=== PATIENT | male | born 1955 | race African-American/Black ===

== ENCOUNTER 2017-11-04 19:06 | Emergency (ER) | payer MEDICARE, OTHER ==
[2017-11-04] MEDS ORDERED: Acetaminophen/Codeine 30-300mg Tablet ONE (19:36)
== END 2017-11-04 20:15 | disposition home or self-care (01) ==
LOC: ERS 19:06
DX: K08.89 Other specified disorders of teeth and supporting structures (principal); F17.210 Nicotine dependence, cigarettes, uncomplicated; Z79.82 Long term (current) use of aspirin; Z79.899 Other long term (current) drug therapy; Z79.01 Long term (current) use of anticoagulants
CPT/HCPCS: 99282

== ENCOUNTER 2021-12-12 16:01 | Inpatient (IN) | payer OTHER ==
[2021-12-12 16:22] LABS: #Lymphocytes 1.2 thou/uL (1.20-3.40); #Monocytes 0.6 thou/uL (0.11-0.59); #Neutrophils 2.6 thou/uL (1.40-6.50); %Basophils 1.1 % (0.0-1.0); %Eosinophils 0.5 % (0.0-10.0); %Lymphocytes 26.9 % (21.0-51.0); %Monocytes 13.2 % (0.0-10.0); %Neutrophils 58.3 % (42.0-75.0); Hemoglobin 14.4 g/dL (14.0-18.0); Mean Corpuscular HGB CONC 33.7 g/dL (32.0-36.0); Mean Platelet Volume 9.7 fL (7.4-10.4); Platelet Count 131 thou/uL (130-400); RBC Distribution Width 13.6 % (11.5-14.5); White Blood Cell (WBC) Count 4.4 thou/uL (4.8-10.8)
[2021-12-12 16:33] LABS: Prothrombin Time 32.7 sec (12.0-14.7)
[2021-12-12 16:35] LABS: PTT 54.2 sec (22.9-36.1)
[2021-12-12 16:37] LABS: INR-International Normal Ratio 3.1
[2021-12-12 16:48] LABS: ALT (SGPT) 13 U/L (8-55); AST (SGOT) 21 U/L (5-34); Albumin 3.8 g/dL (3.4-4.8); Alkaline Phosphatase 61 U/L (40-110); Anion Gap 16 mmol/L (10-20); BUN (Urea Nitrogen) 24 mg/dL (8.4-25.7); Bilirubin, Total 1.3 mg/dL (0.2-1.2); CK (CPK) 131 U/L (30-200); Calc. Creatinine Clearance 0 mL/min (70-130); Calcium 8.8 mg/dL (7.8-10.44); Carbon Dioxide 21 mmol/L (23-31); Chloride 105 mmol/L (98-107); Estimated GFR 76; Glucose 99 mg/dL (80-115); Potassium 4.2 mmol/L (3.5-5.1); Protein, Total 6.8 g/dL (5.8-8.1); Sodium 138 mmol/L (136-145)
[2021-12-12] MEDS ORDERED: Dexamethasone 4 MG in Sodium Chloride 0.9% 50 ML IVPB SCH (18:00)
[2021-12-12] MEDS ORDERED: Dexamethasone 10 MG in Sodium Chloride 0.9% 50 ML IVPB SCH (18:00)
[2021-12-12] MEDS ORDERED: levETIRAcetam in NS 1,000 MG in Premix Bag 1 BAG IVPB SCH (18:00)
[2021-12-12] MEDS ORDERED: Ondansetron PF 4 MG/2 ML Vial IVP PRN (18:09)
[2021-12-12] MEDS ORDERED: Acetaminophen 325 MG TAB PO PRN (18:09)
[2021-12-12] MEDS ORDERED: niCARdipine 25 MG in Sodium Chloride 0.9% 250 ML 250 ML IVPB PRN (18:09)
[2021-12-12] MEDS ORDERED: Labetalol HCl 100 MG/20 ML VIAL SLOW IVP PRN (18:09)
[2021-12-12] MEDS ORDERED: Phytonadione 10 MG/ML AMP SLOW IVP SCH (18:30)
[2021-12-12] MEDS ORDERED: HUM PROTHROMBIN CPLX(PCC)4FACT 1,000 UNIT, Human Prothrombin Complx(PCC) 500 UNIT in Ad... IV SCH (18:30)
[2021-12-12] MEDS ORDERED: Dexamethasone 10 MG/ML VIAL SLOW IVP SCH (19:00)
[2021-12-12] MEDS ORDERED: levETIRAcetam 500 MG/5 ML VIAL SLOW IVP SCH (19:00)
[2021-12-12 19:26] LABS: Acetaminophen Less than 10.0 mcg/mL (10.0-30.0); Alcohol Less than 10 mg/dL (Less than 10); Salicylate Less than 8.0 mg/dL (15.0-30.0)
[2021-12-12 19:31] LABS: SARS-CoV-2 NAA Rapid Test Not Detected (NotDetected)
[2021-12-12 20:48] LABS: INR-International Normal Ratio 1.3; PTT 40.5 sec (22.9-36.1); Prothrombin Time 16.3 sec (12.0-14.7)
[2021-12-12] MEDS: Pantoprazole 40 MG VIAL IVP SCH (22:36)
[2021-12-12] MEDS ORDERED: Dexamethasone 4 mg/ml Vial SLOW IVP SCH (23:59)
[2021-12-13 03:49] LABS: INR-International Normal Ratio 1.2; Prothrombin Time 14.9 sec (12.0-14.7)
[2021-12-13 03:50] LABS: PTT 39.2 sec (22.9-36.1)
[2021-12-13 03:58] LABS: Anion Gap 15 mmol/L (10-20); BUN (Urea Nitrogen) 20 mg/dL (8.4-25.7); Calc. Creatinine Clearance 75 mL/min (70-130); Carbon Dioxide 22 mmol/L (23-31); Cardiac Risk 2.8 (Less than 4.5); Chloride 106 mmol/L (98-107); Cholesterol 186 mg/dl (< 200 Desired); Estimated GFR 95; Glucose 106 mg/dL (80-115); HDL Cholesterol 67 mg/dL (>60 Neg Risk); LDL Cholesterol, Calculated 89 mg/dL; Potassium 4.1 mmol/L (3.5-5.1); Sodium 139 mmol/L (136-145); Triglycerides 148 mg/dL (Less than 150)
[2021-12-13 04:13] LABS: #Lymphocytes 0.6 thou/uL (1.20-3.40); #Monocytes 0.2 thou/uL (0.11-0.59); #Neutrophils 3.7 thou/uL (1.40-6.50); %Basophils 0.2 % (0.0-1.0); %Eosinophils 0.2 % (0.0-10.0); %Monocytes 4.4 % (0.0-10.0); %Neutrophils 82.2 % (42.0-75.0); Hemoglobin 14.4 g/dL (14.0-18.0); Large Platelets SLIGHT; MDiff Complete? YES; Macrocytosis MODERATE=16-30 cells (100X) (0-5/hpf); Mean Corpuscular HGB CONC 34.6 g/dL (32.0-36.0); Mean Platelet Volume 10.1 fL (7.4-10.4); Ovalocytes SLIGHT = 2-5 cells (100X) (0-1/hpf); Platelet Count 118 thou/uL (130-400); Platelet Morphology Comment Appears Decreased; RBC Distribution Width 13.3 % (11.5-14.5); Red Blood Cell (RBC) Count 3.99 mill/uL (4.70-6.10); White Blood Cell (WBC) Count 4.5 thou/uL (4.8-10.8)
[2021-12-13] MEDS: Dexamethasone 4 mg/ml Vial SLOW IVP SCH ×3 (05:22→19:23)
[2021-12-13] MEDS: levETIRAcetam 500 MG/5 ML VIAL SLOW IVP SCH ×2 (10:57→21:19)
[2021-12-13] MEDS: Pantoprazole 40 MG VIAL IVP SCH ×2 (10:57→21:20)
[2021-12-13 11:39] LABS: Amphetamine Not Detected (NotDetected); Barbiturates Screen Not Detected (NotDetected); Benzodiazepine Screen Not Detected (NotDetected); Cocaine Metabolite Screen Not Detected (NotDetected); Methadone Not Detected (NotDetected); Methamphetamine Not Detected (NotDetected); Opiate Screen Not Detected (NotDetected); Oxycodone Screen Not Detected (NotDetected); Phencyclidine (PCP) Not Detected (NotDetected); THC/Cannabinoid Screen Detected (NotDetected); Tricyclic Screen Not Detected (NotDetected)
[2021-12-13] MEDS ORDERED: Midazolam HCl 2 mg/2 ml Vial IVP SCH (14:45)
[2021-12-14] MEDS: Dexamethasone 4 mg/ml Vial SLOW IVP SCH ×4 (00:12→18:53)
[2021-12-14] MEDS: levETIRAcetam 500 MG/5 ML VIAL SLOW IVP SCH ×2 (09:41→21:45)
[2021-12-14] MEDS: Pantoprazole 40 MG VIAL IVP SCH ×2 (09:41→21:45)
[2021-12-14 13:31] VITALS: BMI 17.9
[2021-12-14] MEDS ORDERED: Haloperidol Lactate 5 MG/ML VIAL ONE (17:10)
[2021-12-14] MEDS ORDERED: Haloperidol Lactate 5 MG/ML VIAL IM SCH (18:00)
[2021-12-15] MEDS: Dexamethasone 4 mg/ml Vial SLOW IVP SCH ×4 (01:57→18:32)
[2021-12-15] MEDS: levETIRAcetam 500 MG/5 ML VIAL SLOW IVP SCH ×2 (09:21→21:02)
[2021-12-15] MEDS: Pantoprazole 40 MG VIAL IVP SCH ×2 (09:24→21:03)
[2021-12-16] MEDS: Dexamethasone 4 mg/ml Vial SLOW IVP SCH ×4 (00:13→18:29)
[2021-12-16] MEDS: levETIRAcetam 500 MG/5 ML VIAL SLOW IVP SCH ×2 (08:50→21:25)
[2021-12-16] MEDS: Pantoprazole 40 MG VIAL IVP SCH (08:50)
[2021-12-17] MEDS: Dexamethasone 4 mg/ml Vial SLOW IVP SCH ×4 (00:14→18:16)
[2021-12-17 06:15] LABS: Anion Gap 13 mmol/L (10-20); BUN (Urea Nitrogen) 23 mg/dL (8.4-25.7); Calc. Creatinine Clearance 85 mL/min (70-130); Calcium 8.7 mg/dL (7.8-10.44); Carbon Dioxide 23 mmol/L (23-31); Chloride 103 mmol/L (98-107); Estimated GFR 99; Glucose 112 mg/dL (80-115); Potassium 4.1 mmol/L (3.5-5.1); Sodium 135 mmol/L (136-145)
[2021-12-17] MEDS: levETIRAcetam 500 MG/5 ML VIAL SLOW IVP SCH ×2 (08:17→20:42)
[2021-12-17] MEDS: Atorvastatin Calcium 40 MG TAB PO SCH (20:42)
[2021-12-18] MEDS: Dexamethasone 4 mg/ml Vial SLOW IVP SCH ×3 (00:36→13:45)
[2021-12-18] MEDS: levETIRAcetam 500 MG/5 ML VIAL SLOW IVP SCH (10:35)
[2021-12-18] MEDS ORDERED: levETIRAcetam 500 MG TAB PO SCH (11:15)
[2021-12-18] MEDS ORDERED: Dexamethasone 4 MG TAB PO SCH (14:00)
[2021-12-18] MEDS: Dexamethasone 4 MG TAB PO SCH ×2 (19:27→23:53)
[2021-12-18] MEDS: levETIRAcetam 500 MG TAB PO SCH (20:58)
[2021-12-18] MEDS: Atorvastatin Calcium 40 MG TAB PO SCH (20:58)
[2021-12-19] MEDS: Dexamethasone 4 MG TAB PO SCH ×3 (06:14→18:12)
[2021-12-19] MEDS: levETIRAcetam 500 MG TAB PO SCH ×2 (09:06→22:12)
[2021-12-19 12:18] LABS: Anion Gap 17 mmol/L (10-20); BUN (Urea Nitrogen) 23 mg/dL (8.4-25.7); Calc. Creatinine Clearance 77 mL/min (70-130); Carbon Dioxide 21 mmol/L (23-31); Chloride 100 mmol/L (98-107); Estimated GFR 96; Glucose 166 mg/dL (80-115); Magnesium 1.9 mg/dL (1.6-2.6); Potassium 4.1 mmol/L (3.5-5.1); Sodium 134 mmol/L (136-145)
[2021-12-19] MEDS: Atorvastatin Calcium 40 MG TAB PO SCH (22:12)
[2021-12-19] MEDS: Metoprolol Tartrate 25 MG TAB PO SCH (22:12)
[2021-12-20] MEDS: Dexamethasone 4 MG TAB PO SCH ×4 (03:19→17:56)
[2021-12-20] MEDS: levETIRAcetam 500 MG TAB PO SCH ×2 (09:17→20:19)
[2021-12-20 09:42] LABS: #Lymphocytes 0.9 thou/uL (1.20-3.40); #Monocytes 0.8 thou/uL (0.11-0.59); #Neutrophils 7.9 thou/uL (1.40-6.50); %Eosinophils 0.2 % (0.0-10.0); %Lymphocytes 9.5 % (21.0-51.0); %Monocytes 8.3 % (0.0-10.0); %Neutrophils 81.9 % (42.0-75.0); Hemoglobin 16.1 g/dL (14.0-18.0); Mean Corpuscular HGB CONC 32.1 g/dL (32.0-36.0); Mean Corpuscular Hemoglobin 33.5 pg (27.0-31.0); Mean Platelet Volume 10.5 fL (7.4-10.4); Platelet Count 151 thou/uL (130-400); RBC Distribution Width 13.4 % (11.5-14.5); Red Blood Cell (RBC) Count 4.82 mill/uL (4.70-6.10); White Blood Cell (WBC) Count 9.6 thou/uL (4.8-10.8)
[2021-12-20] MEDS: Metoprolol Tartrate 25 MG TAB PO SCH (11:27)
[2021-12-20] MEDS: Atorvastatin Calcium 40 MG TAB PO SCH (20:19)
[2021-12-21] MEDS: Dexamethasone 4 MG TAB PO SCH ×5 (05:44→21:26)
[2021-12-21] MEDS: levETIRAcetam 500 MG TAB PO SCH ×2 (09:54→21:26)
[2021-12-21] MEDS: Atorvastatin Calcium 40 MG TAB PO SCH (21:26)
[2021-12-22] MEDS: levETIRAcetam 500 MG TAB PO SCH (08:05)
[2021-12-22] MEDS: Dexamethasone 4 MG TAB PO SCH ×2 (08:05→13:03)
[2021-12-22 16:18] VITALS: BP 117/78; TEMP 98.1
== END 2021-12-22 17:59 | DRG 545 ==
LOC: ERS 16:01 → CCU 18:22 → EEVIPCON 18:22 → NEURO 12-14 12:57
PROVIDERS: ADMIT Internal Medicine; ATTEND Internal Medicine
PROC: 30283B1 Transfusion of Nonautologous 4-Factor Prothrombin Complex Concentrate into Vein, Percutaneous Approach (ICD-10-PCS; principal; 2021-12-12)
PROC: 30233K1 Transfusion of Nonautologous Frozen Plasma into Peripheral Vein, Percutaneous Approach (ICD-10-PCS; 2021-12-12)
DX: E85.4 Organ-limited amyloidosis (principal); G93.6 Cerebral edema; I61.0 Nontraumatic intracerebral hemorrhage in hemisphere, subcortical; R47.01 Aphasia; I47.2 Ventricular tachycardia; I47.1 Supraventricular tachycardia; E78.5 Hyperlipidemia, unspecified; F17.210 Nicotine dependence, cigarettes, uncomplicated; I11.0 Hypertensive heart disease with heart failure; I50.9 Heart failure, unspecified; I68.0 Cerebral amyloid angiopathy; F12.10 Cannabis abuse, uncomplicated; R47.02 Dysphasia; H53.461 Homonymous bilateral field defects, right side; Z83.3 Family history of diabetes mellitus; Z82.3 Family history of stroke; Z95.2 Presence of prosthetic heart valve; Z98.890 Other specified postprocedural states; Z78.1 Physical restraint status; Z79.899 Other long term (current) drug therapy; Z79.01 Long term (current) use of anticoagulants
CPT/HCPCS: 36415; 36416; 36430; 70450; 70553; 71045; 71250; 74177; 80048; 80053; 80061; 80306; 80307; 82550; 83735; 84484; 85025; 85610; 85730; 86850; 86900; 86901; 93005; 93010; 93306; 94640; 95712; 95819; 95957; 96374; C9113; J1100; J1630; J1953; J2250; J7050; J7168; J7620; J8540; P9059; U0002; U0003; U0005

== ENCOUNTER 2021-12-24 18:56 | Inpatient (IN) | payer OTHER ==
[2021-12-24] MEDS ORDERED: Morphine 4 MG/ML VIAL ONE (19:57)
[2021-12-24] MEDS ORDERED: Ondansetron PF 4 MG/2 ML Vial ONE (19:57)
[2021-12-24 20:14] LABS: Bacteria/HPF None Seen HPF (None Seen); Bilirubin Negative (Negative); Blood, Urine Negative (Negative); Clarity Clear (Clear); Glucose, Urine (Dipstick) Normal (Negative); Ketone, Urine Negative (Negative); Leukocyte Negative Leu/uL (Negative); Mucous/LPF 1+ LPF (<2+); Nitrite Negative (Negative); Protein, Urine (Dipstick) 30 mg/dL (Neg-Trace); RBC/HPF 0-3 HPF (0-3); Squamous Epithelial None Seen HPF (0-3); Urobilinogen Normal mg/dL (Less than 2); WBC/HPF 0-3 HPF (0-3); pH, Urine 6.5 (5.0-9.0)
[2021-12-24 20:15] LABS: Specific Gravity, Urine 1.048 (1.002-1.036)
[2021-12-24] MEDS ORDERED: Benzocaine 20% Spray 60 ML CAN ONE (20:46)
[2021-12-24] MEDS ORDERED: Acetaminophen 650 MG Suppository PR PRN (21:14)
[2021-12-24] MEDS ORDERED: Ondansetron ODT 4 MG TAB PO PRN (21:14)
[2021-12-24] MEDS ORDERED: Ondansetron PF 4 MG/2 ML Vial IVP PRN (21:14)
[2021-12-24] MEDS ORDERED: Guaifenesin DM 100-10/5 ML UDCUP PO PRN (21:14)
[2021-12-24] MEDS: Sodium Chloride 0.9% 1,000 ML IV SCH (23:25)
[2021-12-24] MEDS ORDERED: Morphine 4 MG/ML VIAL SLOW IVP SCH (23:45)
[2021-12-25] MEDS ORDERED: hydrALAZINE 20 MG/ML VIAL SLOW IVP PRN (04:31)
[2021-12-25 04:50] LABS: #Lymphocytes 0.6 thou/uL (1.20-3.40); #Monocytes 1.3 thou/uL (0.11-0.59); #Neutrophils 10.1 thou/uL (1.40-6.50); %Basophils 0.2 % (0.0-1.0); %Eosinophils 0.1 % (0.0-10.0); %Lymphocytes 5.1 % (21.0-51.0); %Monocytes 10.9 % (0.0-10.0); %Neutrophils 83.7 % (42.0-75.0); Hemoglobin 16.5 g/dL (14.0-18.0); Mean Corpuscular HGB CONC 34.3 g/dL (32.0-36.0); Mean Corpuscular Hemoglobin 35.5 pg (27.0-31.0); Mean Platelet Volume 10.2 fL (7.4-10.4); Platelet Count 131 thou/uL (130-400); RBC Distribution Width 13.4 % (11.5-14.5); Red Blood Cell (RBC) Count 4.64 mill/uL (4.70-6.10); White Blood Cell (WBC) Count 12.1 thou/uL (4.8-10.8)
[2021-12-25 04:58] LABS: PTT 33.1 sec (22.9-36.1); Prothrombin Time 13.5 sec (12.0-14.7)
[2021-12-25 05:15] LABS: ALT (SGPT) 51 U/L (8-55); AST (SGOT) 35 U/L (5-34); Albumin 3.6 g/dL (3.4-4.8); Alkaline Phosphatase 66 U/L (40-110); Anion Gap 17 mmol/L (10-20); BUN (Urea Nitrogen) 19 mg/dL (8.4-25.7); Bilirubin, Total 1.9 mg/dL (0.2-1.2); Calc. Creatinine Clearance 82 mL/min (70-130); Calcium 8.7 mg/dL (7.8-10.44); Carbon Dioxide 25 mmol/L (23-31); Chloride 99 mmol/L (98-107); Estimated GFR 99; Globulin 2.8 g/dL (2.4-3.5); Glucose 88 mg/dL (80-115); Magnesium 1.8 mg/dL (1.6-2.6); Protein, Total 6.4 g/dL (5.8-8.1); Sodium 137 mmol/L (136-145)
[2021-12-25] MEDS: Morphine 4 MG/ML VIAL SLOW IVP PRN ×3 (05:54→21:58)
[2021-12-25] MEDS ORDERED: Morphine 4 MG/ML VIAL SLOW IVP SCH (07:00)
[2021-12-25] MEDS: Sodium Chloride 0.9% 1,000 ML IV SCH ×2 (07:08→19:00)
[2021-12-25] MEDS ORDERED: Pantoprazole 40 MG VIAL IVP SCH ×2 (09:00)
[2021-12-25] MEDS ORDERED: Morphine 4 MG/ML VIAL ONE (11:18)
[2021-12-25] MEDS ORDERED: Fentanyl 100 MCG/2 ML VIAL ONE (12:14)
[2021-12-25] MEDS ORDERED: Ketamine 50 MG/ML (10ML VIAL) ONE (12:31)
[2021-12-25] MEDS ORDERED: Glycopyrrolate 0.2 MG/ML 5 ML SYRINGE ONE ×2 (12:31→12:40)
[2021-12-25] MEDS ORDERED: PROPOFOL 200 MG/20 ML VIAL ONE (12:40)
[2021-12-25 15:25] LABS: #Lymphocytes 0.9 thou/uL (1.20-3.40); #Monocytes 1.2 thou/uL (0.11-0.59); #Neutrophils 12.6 thou/uL (1.40-6.50); %Basophils 0.1 % (0.0-1.0); %Eosinophils 0.1 % (0.0-10.0); %Lymphocytes 6.2 % (21.0-51.0); %Monocytes 8.4 % (0.0-10.0); %Neutrophils 85.3 % (42.0-75.0); Hemoglobin 16.3 g/dL (14.0-18.0); Mean Corpuscular HGB CONC 33.1 g/dL (32.0-36.0); Mean Corpuscular Hemoglobin 34.7 pg (27.0-31.0); Mean Platelet Volume 9.8 fL (7.4-10.4); Platelet Count 127 thou/uL (130-400); RBC Distribution Width 13.3 % (11.5-14.5); White Blood Cell (WBC) Count 14.8 thou/uL (4.8-10.8)
[2021-12-25 15:44] LABS: Anion Gap 15 mmol/L (10-20); BUN (Urea Nitrogen) 17 mg/dL (8.4-25.7); Calc. Creatinine Clearance 74 mL/min (70-130); Calcium 8.8 mg/dL (7.8-10.44); Carbon Dioxide 27 mmol/L (23-31); Chloride 99 mmol/L (98-107); Estimated GFR 96; Glucose 97 mg/dL (80-115); Lipase 10 U/L (8-78); Potassium 4.1 mmol/L (3.5-5.1); Sodium 137 mmol/L (136-145)
[2021-12-25 15:45] LABS: Lactic Acid 3.2 mmol/L (0.5-2.2)
[2021-12-25] MEDS: Atorvastatin Calcium 40 MG TAB PO SCH (20:45)
[2021-12-25] MEDS: levETIRAcetam 500 MG TAB PO SCH (20:45)
[2021-12-25] MEDS: Acetaminophen 325 MG TAB PO PRN (23:40)
[2021-12-26] MEDS: Morphine 4 MG/ML VIAL SLOW IVP PRN ×5 (01:46→20:59)
[2021-12-26 05:05] LABS: ALT (SGPT) 119 U/L (8-55); AST (SGOT) 93 U/L (5-34); Albumin 3.4 g/dL (3.4-4.8); Alkaline Phosphatase 64 U/L (40-110); Anion Gap 17 mmol/L (10-20); BUN (Urea Nitrogen) 18 mg/dL (8.4-25.7); Bilirubin, Total 2.9 mg/dL (0.2-1.2); Calc. Creatinine Clearance 84 mL/min (70-130); Calcium 8.6 mg/dL (7.8-10.44); Carbon Dioxide 21 mmol/L (23-31); Chloride 101 mmol/L (98-107); Estimated GFR 100; Globulin 2.9 g/dL (2.4-3.5); Glucose 92 mg/dL (80-115); Lipase 13 U/L (8-78); Potassium 4.6 mmol/L (3.5-5.1); Protein, Total 6.3 g/dL (5.8-8.1); Sodium 134 mmol/L (136-145)
[2021-12-26 05:08] LABS: #Basophils 0.1 thou/uL (0.0-0.2); #Lymphocytes 0.5 thou/uL (1.20-3.40); #Monocytes 1.5 thou/uL (0.11-0.59); #Neutrophils 12.8 thou/uL (1.40-6.50); %Basophils 0.7 % (0.0-1.0); %Lymphocytes 3.6 % (21.0-51.0); %Monocytes 10.2 % (0.0-10.0); %Neutrophils 85.5 % (42.0-75.0); Hemoglobin 15.2 g/dL (14.0-18.0); Large Platelets SLIGHT; MDiff Complete? YES; Macrocytosis MODERATE=16-30 cells (100X) (0-5/hpf); Mean Corpuscular HGB CONC 35.3 g/dL (32.0-36.0); Mean Corpuscular Hemoglobin 37.2 pg (27.0-31.0); Mean Platelet Volume 10.8 fL (7.4-10.4); Ovalocytes SLIGHT = 2-5 cells (100X) (0-1/hpf); Platelet Count 93 thou/uL (130-400); Platelet Morphology Comment Appears Decreased; RBC Distribution Width 13.2 % (11.5-14.5); Red Blood Cell (RBC) Count 4.09 mill/uL (4.70-6.10); Target Cells SLIGHT = 2-5 cells (100X) (0-1/hpf); Tear Drops SLIGHT = 2-5 cells (100X) (0-1/hpf)
[2021-12-26] MEDS: Acetaminophen 325 MG TAB PO PRN (05:28)
[2021-12-26] MEDS: Sodium Chloride 0.9% 1,000 ML IV SCH ×2 (05:40→17:13)
[2021-12-26] MEDS: levETIRAcetam 500 MG TAB PO SCH ×2 (08:40→20:59)
[2021-12-26] MEDS ORDERED: Heparin 25,000 units/D5W 500 ML IVPB SCH ×2 (15:15→16:30)
[2021-12-26] MEDS ORDERED: Heparin 10,000 UNITS/ 10 ML VIAL SLOW IVP SCH ×2 (15:15→16:30)
[2021-12-26 15:56] LABS: Bacteria/HPF None Seen HPF (None Seen); Bilirubin Negative (Negative); Blood, Urine Trace (Negative); Clarity Clear (Clear); Glucose, Urine (Dipstick) 30 mg/dL (Negative); Ketone, Urine 10 mg/dL (Negative); Leukocyte Negative Leu/uL (Negative); Nitrite Negative (Negative); Protein, Urine (Dipstick) 100 mg/dL (Neg-Trace); RBC/HPF 0-3 HPF (0-3); Specific Gravity, Urine 1.046 (1.002-1.036); Squamous Epithelial 0-3 HPF (0-3); WBC/HPF 0-3 HPF (0-3)
[2021-12-26 15:57] LABS: Urine Culture Reflex No No
[2021-12-26 16:12] LABS: Hemoglobin 15.2 g/dL (14.0-18.0); Platelet Count 108 thou/uL (130-400)
[2021-12-26] MEDS: Atorvastatin Calcium 40 MG TAB PO SCH (20:59)
[2021-12-26 23:44] LABS: PTT 172.7 sec (22.9-36.1)
[2021-12-27] MEDS: Morphine 4 MG/ML VIAL SLOW IVP PRN ×2 (01:14→23:58)
[2021-12-27] MEDS ORDERED: Morphine 2 MG/ML VIAL SLOW IVP SCH (04:30)
[2021-12-27 04:57] LABS: #Lymphocytes 0.6 thou/uL (1.20-3.40); %Basophils 0.1 % (0.0-1.0); %Eosinophils 0.2 % (0.0-10.0); %Lymphocytes 4.9 % (21.0-51.0); %Monocytes 8.7 % (0.0-10.0); %Neutrophils 86.1 % (42.0-75.0); Hemoglobin 14.3 g/dL (14.0-18.0); Mean Corpuscular HGB CONC 34.1 g/dL (32.0-36.0); Mean Platelet Volume 10.3 fL (7.4-10.4); Platelet Count 107 thou/uL (130-400); RBC Distribution Width 13.3 % (11.5-14.5); Red Blood Cell (RBC) Count 3.98 mill/uL (4.70-6.10); White Blood Cell (WBC) Count 11.6 thou/uL (4.8-10.8)
[2021-12-27 05:22] LABS: ALT (SGPT) 94 U/L (8-55); AST (SGOT) 63 U/L (5-34); Albumin 3.2 g/dL (3.4-4.8); Alkaline Phosphatase 79 U/L (40-110); Anion Gap 14 mmol/L (10-20); BUN (Urea Nitrogen) 20 mg/dL (8.4-25.7); Bilirubin, Total 2.9 mg/dL (0.2-1.2); Calc. Creatinine Clearance 82 mL/min (70-130); Calcium 8.7 mg/dL (7.8-10.44); Carbon Dioxide 21 mmol/L (23-31); Chloride 105 mmol/L (98-107); Estimated GFR 99; Glucose 96 mg/dL (80-115); Potassium 4.5 mmol/L (3.5-5.1); Protein, Total 6.2 g/dL (5.8-8.1); Sodium 135 mmol/L (136-145)
[2021-12-27] MEDS: Sodium Chloride 0.9% 1,000 ML IV SCH ×2 (05:55→21:02)
[2021-12-27] MEDS: levETIRAcetam 500 MG TAB PO SCH ×2 (08:25→21:03)
[2021-12-27] MEDS: Morphine 2 MG/ML VIAL SLOW IVP PRN ×3 (08:26→21:03)
[2021-12-27 15:04] LABS: PTT 124.6 sec (22.9-36.1)
[2021-12-27] MEDS: Atorvastatin Calcium 40 MG TAB PO SCH (21:02)
[2021-12-28 04:30] LABS: #Lymphocytes 0.6 thou/uL (1.20-3.40); #Monocytes 0.9 thou/uL (0.11-0.59); #Neutrophils 6.9 thou/uL (1.40-6.50); %Basophils 0.1 % (0.0-1.0); %Eosinophils 0.3 % (0.0-10.0); %Monocytes 10.7 % (0.0-10.0); %Neutrophils 81.9 % (42.0-75.0); Hemoglobin 13.4 g/dL (14.0-18.0); Mean Corpuscular HGB CONC 34.4 g/dL (32.0-36.0); Mean Corpuscular Hemoglobin 36.3 pg (27.0-31.0); Mean Platelet Volume 9.6 fL (7.4-10.4); Platelet Count 117 thou/uL (130-400); RBC Distribution Width 13.2 % (11.5-14.5); White Blood Cell (WBC) Count 8.4 thou/uL (4.8-10.8)
[2021-12-28] MEDS: Morphine 4 MG/ML VIAL SLOW IVP PRN ×3 (04:39→21:12)
[2021-12-28 04:49] LABS: ALT (SGPT) 164 U/L (8-55); AST (SGOT) 163 U/L (5-34); Albumin 2.9 g/dL (3.4-4.8); Alkaline Phosphatase 96 U/L (40-110); Anion Gap 15 mmol/L (10-20); BUN (Urea Nitrogen) 16 mg/dL (8.4-25.7); Bilirubin, Total 2.2 mg/dL (0.2-1.2); Calc. Creatinine Clearance 84 mL/min (70-130); Calcium 8.2 mg/dL (7.8-10.44); Carbon Dioxide 21 mmol/L (23-31); Chloride 104 mmol/L (98-107); Estimated GFR 100; Globulin 2.8 g/dL (2.4-3.5); Glucose 106 mg/dL (80-115); Potassium 4.6 mmol/L (3.5-5.1); Protein, Total 5.7 g/dL (5.8-8.1); Sodium 135 mmol/L (136-145)
[2021-12-28] MEDS: levETIRAcetam 500 MG TAB PO SCH ×2 (08:32→21:12)
[2021-12-28] MEDS: Sodium Chloride 0.9% 1,000 ML IV SCH (09:01)
[2021-12-28 09:06] LABS: PTT 142.7 sec (22.9-36.1)
[2021-12-28 15:18] LABS: Hemoglobin 13.7 g/dL (14.0-18.0); Platelet Count 127 thou/uL (130-400)
[2021-12-28] MEDS: Atorvastatin Calcium 40 MG TAB PO SCH (21:12)
[2021-12-28] MEDS: Acetaminophen 325 MG TAB PO PRN (21:12)
[2021-12-29] MEDS: Sodium Chloride 0.9% 1,000 ML IV SCH ×2 (00:41→12:54)
[2021-12-29] MEDS: Morphine 4 MG/ML VIAL SLOW IVP PRN ×5 (02:07→20:25)
[2021-12-29 05:20] LABS: ALT (SGPT) 111 U/L (8-55); AST (SGOT) 73 U/L (5-34); Albumin 2.7 g/dL (3.4-4.8); Alkaline Phosphatase 104 U/L (40-110); Anion Gap 11 mmol/L (10-20); BUN (Urea Nitrogen) 14 mg/dL (8.4-25.7); Bilirubin, Total 1.3 mg/dL (0.2-1.2); Calc. Creatinine Clearance 81 mL/min (70-130); Calcium 7.9 mg/dL (7.8-10.44); Carbon Dioxide 25 mmol/L (23-31); Chloride 102 mmol/L (98-107); Estimated GFR 98; Globulin 2.7 g/dL (2.4-3.5); Glucose 84 mg/dL (80-115); Potassium 3.4 mmol/L (3.5-5.1); Protein, Total 5.4 g/dL (5.8-8.1); Sodium 135 mmol/L (136-145)
[2021-12-29] MEDS: levETIRAcetam 500 MG TAB PO SCH ×2 (08:44→20:25)
[2021-12-29] MEDS: Heparin 25,000 units/D5W 500 ML IV SCH (16:40)
[2021-12-29] MEDS: Atorvastatin Calcium 40 MG TAB PO SCH (20:26)
[2021-12-30] MEDS: Morphine 4 MG/ML VIAL SLOW IVP PRN ×7 (00:19→23:55)
[2021-12-30] MEDS: Sodium Chloride 0.9% 1,000 ML IV SCH ×2 (00:20→14:34)
[2021-12-30 04:46] LABS: ALT (SGPT) 90 U/L (8-55); AST (SGOT) 58 U/L (5-34); Albumin 2.7 g/dL (3.4-4.8); Alkaline Phosphatase 114 U/L (40-110); Anion Gap 12 mmol/L (10-20); BUN (Urea Nitrogen) 13 mg/dL (8.4-25.7); Bilirubin, Total 0.9 mg/dL (0.2-1.2); Calc. Creatinine Clearance 81 mL/min (70-130); Calcium 8.1 mg/dL (7.8-10.44); Carbon Dioxide 25 mmol/L (23-31); Chloride 104 mmol/L (98-107); Estimated GFR 98; Globulin 2.9 g/dL (2.4-3.5); Glucose 105 mg/dL (80-115); Potassium 4.3 mmol/L (3.5-5.1); Protein, Total 5.6 g/dL (5.8-8.1); Sodium 137 mmol/L (136-145)
[2021-12-30] MEDS: levETIRAcetam 500 MG TAB PO SCH ×2 (09:52→20:22)
[2021-12-30] MEDS: Acetaminophen 325 MG TAB PO PRN (11:28)
[2021-12-30 15:07] LABS: Hemoglobin 13.2 g/dL (14.0-18.0); Platelet Count 141 thou/uL (130-400)
[2021-12-30] MEDS ORDERED: Senokot S 8.6-50 MG TAB PO SCH (15:30)
[2021-12-30] MEDS ORDERED: Polyethylene Glycol 3350 17 GM Packet PO SCH (15:30)
[2021-12-30] MEDS: Heparin 10,000 UNITS/ 10 ML VIAL SLOW IVP SCH (16:27)
[2021-12-30] MEDS: Atorvastatin Calcium 40 MG TAB PO SCH (20:21)
[2021-12-30] MEDS: Senokot S 8.6-50 MG TAB PO SCH (20:22)
[2021-12-30 22:56] LABS: PTT 118.3 sec (22.9-36.1)
[2021-12-31] MEDS: Sodium Chloride 0.9% 1,000 ML IV SCH (02:02)
[2021-12-31] MEDS: Morphine 4 MG/ML VIAL SLOW IVP PRN ×7 (03:29→23:23)
[2021-12-31 07:01] LABS: PTT 116.3 sec (22.9-36.1)
[2021-12-31] MEDS: levETIRAcetam 500 MG TAB PO SCH ×2 (08:06→20:09)
[2021-12-31] MEDS: Polyethylene Glycol 3350 17 GM Packet PO SCH (08:07)
[2021-12-31] MEDS: Senokot S 8.6-50 MG TAB PO SCH ×2 (08:08→20:10)
[2021-12-31] MEDS: Heparin 25,000 units/D5W 500 ML IV SCH (08:21)
[2021-12-31 14:04] LABS: Thrombin Time 55.1 secs (14.3-20.0)
[2021-12-31 14:05] LABS: PTT 64.7 sec (22.9-36.1)
[2021-12-31] MEDS: Diltiazem HCl SR 60 mg Capsule PO SCH (20:09)
[2021-12-31] MEDS: Atorvastatin Calcium 40 MG TAB PO SCH (20:09)
[2022-01-01] MEDS: Morphine 4 MG/ML VIAL SLOW IVP PRN ×6 (02:09→20:58)
[2022-01-01] MEDS: levETIRAcetam 500 MG TAB PO SCH ×2 (08:56→20:57)
[2022-01-01] MEDS: Diltiazem HCl SR 60 mg Capsule PO SCH ×2 (08:56→20:57)
[2022-01-01] MEDS: Polyethylene Glycol 3350 17 GM Packet PO SCH (08:57)
[2022-01-01] MEDS: Senokot S 8.6-50 MG TAB PO SCH ×2 (08:57→20:57)
[2022-01-01 15:49] LABS: Hemoglobin 12.7 g/dL (14.0-18.0); Platelet Count 179 thou/uL (130-400)
[2022-01-01] MEDS: Warfarin Sodium 5 MG TAB PO SCH (16:06)
[2022-01-01] MEDS: Atorvastatin Calcium 40 MG TAB PO SCH (20:57)
[2022-01-01] MEDS: Heparin 25,000 units/D5W 500 ML IV SCH (21:01)
[2022-01-02 04:40] LABS: #Eosinphils 0.1 thou/uL (0.0-0.7); #Lymphocytes 0.8 thou/uL (1.20-3.40); #Monocytes 0.4 thou/uL (0.11-0.59); #Neutrophils 4.2 thou/uL (1.40-6.50); %Basophils 0.2 % (0.0-1.0); %Eosinophils 2.6 % (0.0-10.0); %Monocytes 6.5 % (0.0-10.0); %Neutrophils 76.8 % (42.0-75.0); Hemoglobin 12.4 g/dL (14.0-18.0); Mean Corpuscular HGB CONC 34.3 g/dL (32.0-36.0); Mean Corpuscular Hemoglobin 36.4 pg (27.0-31.0); Mean Platelet Volume 10.1 fL (7.4-10.4); Platelet Count 139 thou/uL (130-400); RBC Distribution Width 13.1 % (11.5-14.5); Red Blood Cell (RBC) Count 3.42 mill/uL (4.70-6.10); White Blood Cell (WBC) Count 5.4 thou/uL (4.8-10.8)
[2022-01-02 04:42] LABS: Prothrombin Time 13.5 sec (12.0-14.7)
[2022-01-02 04:59] LABS: ALT (SGPT) 59 U/L (8-55); AST (SGOT) 46 U/L (5-34); Albumin 2.8 g/dL (3.4-4.8); Alkaline Phosphatase 120 U/L (40-110); Anion Gap 12 mmol/L (10-20); BUN (Urea Nitrogen) 7 mg/dL (8.4-25.7); Bilirubin, Total 0.9 mg/dL (0.2-1.2); Calc. Creatinine Clearance 87 mL/min (70-130); Calcium 8.2 mg/dL (7.8-10.44); Carbon Dioxide 26 mmol/L (23-31); Chloride 105 mmol/L (98-107); Estimated GFR 100; Globulin 2.8 g/dL (2.4-3.5); Glucose 89 mg/dL (80-115); Potassium 3.8 mmol/L (3.5-5.1); Protein, Total 5.6 g/dL (5.8-8.1); Sodium 139 mmol/L (136-145)
[2022-01-02] MEDS: Diltiazem HCl SR 60 mg Capsule PO SCH ×2 (10:05→20:18)
[2022-01-02] MEDS: levETIRAcetam 500 MG TAB PO SCH ×2 (10:05→20:18)
[2022-01-02] MEDS: Polyethylene Glycol 3350 17 GM Packet PO SCH (10:06)
[2022-01-02] MEDS: Senokot S 8.6-50 MG TAB PO SCH ×2 (10:06→20:18)
[2022-01-02] MEDS: Morphine 4 MG/ML VIAL SLOW IVP PRN (10:07)
[2022-01-02] MEDS: Morphine 2 MG/ML VIAL SLOW IVP PRN ×2 (15:11→20:18)
[2022-01-02] MEDS: Warfarin Sodium 5 MG TAB PO SCH (16:07)
[2022-01-02] MEDS: Atorvastatin Calcium 40 MG TAB PO SCH (20:17)
[2022-01-03] MEDS: Morphine 2 MG/ML VIAL SLOW IVP PRN (02:39)
[2022-01-03 05:15] LABS: INR-International Normal Ratio 1.1; Prothrombin Time 14.6 sec (12.0-14.7)
[2022-01-03] MEDS: Heparin 25,000 units/D5W 500 ML IV SCH (07:38)
[2022-01-03] MEDS ORDERED: Iopamidol-370 76% 500 ML 1 ML ONE (10:14)
[2022-01-03] MEDS: Senokot S 8.6-50 MG TAB PO SCH ×2 (11:19→20:34)
[2022-01-03] MEDS: Polyethylene Glycol 3350 17 GM Packet PO SCH (11:19)
[2022-01-03] MEDS: levETIRAcetam 500 MG TAB PO SCH ×2 (11:20→20:34)
[2022-01-03] MEDS: Diltiazem HCl SR 60 mg Capsule PO SCH ×2 (11:21→20:34)
[2022-01-03 15:23] LABS: Hemoglobin 13.1 g/dL (14.0-18.0); Platelet Count 264 thou/uL (130-400)
[2022-01-03] MEDS: Warfarin Sodium 5 MG TAB PO SCH (17:35)
[2022-01-03] MEDS: Atorvastatin Calcium 40 MG TAB PO SCH (20:34)
[2022-01-04] MEDS: Heparin 10,000 UNITS/ 10 ML VIAL SLOW IVP SCH (01:39)
[2022-01-04 04:06] LABS: #Lymphocytes 0.8 thou/uL (1.20-3.40); #Monocytes 0.4 thou/uL (0.11-0.59); #Neutrophils 6.9 thou/uL (1.40-6.50); %Basophils 0.2 % (0.0-1.0); %Eosinophils 0.3 % (0.0-10.0); %Lymphocytes 9.6 % (21.0-51.0); %Monocytes 4.9 % (0.0-10.0); %Neutrophils 85.1 % (42.0-75.0); Hemoglobin 15.3 g/dL (14.0-18.0); Mean Corpuscular HGB CONC 33.4 g/dL (32.0-36.0); Mean Corpuscular Hemoglobin 35.3 pg (27.0-31.0); Mean Platelet Volume 8.8 fL (7.4-10.4); Platelet Count 310 thou/uL (130-400); RBC Distribution Width 13.3 % (11.5-14.5); Red Blood Cell (RBC) Count 4.34 mill/uL (4.70-6.10); White Blood Cell (WBC) Count 8.1 thou/uL (4.8-10.8)
[2022-01-04 04:14] LABS: INR-International Normal Ratio 1.1; Prothrombin Time 14.7 sec (12.0-14.7)
[2022-01-04 04:23] LABS: Anion Gap 16 mmol/L (10-20); BUN (Urea Nitrogen) 8 mg/dL (8.4-25.7); Calc. Creatinine Clearance 73 mL/min (70-130); Calcium 9.1 mg/dL (7.8-10.44); Carbon Dioxide 27 mmol/L (23-31); Chloride 104 mmol/L (98-107); Estimated GFR 95; Glucose 95 mg/dL (80-115); Potassium 4.5 mmol/L (3.5-5.1); Sodium 142 mmol/L (136-145)
[2022-01-04] MEDS: levETIRAcetam 500 MG TAB PO SCH ×2 (09:48→22:10)
[2022-01-04] MEDS: Diltiazem HCl SR 60 mg Capsule PO SCH ×2 (09:48→22:10)
[2022-01-04] MEDS: Senokot S 8.6-50 MG TAB PO SCH ×2 (09:49→22:11)
[2022-01-04] MEDS: Polyethylene Glycol 3350 17 GM Packet PO SCH (09:49)
[2022-01-04] MEDS ORDERED: Midazolam HCl 2 mg/2 ml Vial IVP SCH (12:30)
[2022-01-04] MEDS ORDERED: Warfarin Sodium 7.5 MG TAB PO SCH (17:00)
[2022-01-04] MEDS: Heparin 25,000 units/D5W 500 ML IV SCH (18:25)
[2022-01-04] MEDS: Atorvastatin Calcium 40 MG TAB PO SCH (22:10)
[2022-01-05 06:33] LABS: INR-International Normal Ratio 1.3; Prothrombin Time 16.3 sec (12.0-14.7)
[2022-01-05 06:34] LABS: PTT 68.7 sec (22.9-36.1)
[2022-01-05] MEDS ORDERED: Lorazepam (BATCHED) 2 MG/ML SYR SLOW IVP SCH ×2 (08:00→13:45)
[2022-01-05] MEDS ORDERED: Lorazepam 2 MG/ML VIAL SLOW IVP SCH (08:00)
[2022-01-05] MEDS ORDERED: levETIRAcetam in NS 1,000 MG in Premix Bag 1 BAG IVPB ONE (08:08)
[2022-01-05] MEDS ORDERED: levETIRAcetam 500 MG/5 ML VIAL SLOW IVP SCH ×3 (08:30→09:15)
[2022-01-05] MEDS ORDERED: levETIRAcetam in NS 1,500 MG in Premix Bag 1 BAG IVPB SCH (09:00)
[2022-01-05] MEDS: Heparin 25,000 units/D5W 500 ML IV SCH (09:42)
[2022-01-05 11:10] VITALS: BP 180/82
[2022-01-05] MEDS: Diltiazem HCl SR 60 mg Capsule PO SCH ×2 (11:13→20:34)
[2022-01-05] MEDS: Polyethylene Glycol 3350 17 GM Packet PO SCH (11:14)
[2022-01-05] MEDS: Senokot S 8.6-50 MG TAB PO SCH ×2 (11:14→20:35)
[2022-01-05] MEDS ORDERED: Lacosamide 200 MG/20 ML VIAL SLOW IVP SCH (11:45)
[2022-01-05] MEDS ORDERED: Lacosamide 200 MG in Sodium Chloride 0.9% 50 ML IVPB SCH (11:45)
[2022-01-05 17:00] LABS: Hemoglobin 13.8 g/dL (14.0-18.0); Platelet Count 278 thou/uL (130-400)
[2022-01-05] MEDS ORDERED: Lorazepam 2 MG/ML VIAL SLOW IVP PRN (19:41)
[2022-01-05] MEDS: levETIRAcetam 500 MG/5 ML VIAL SLOW IVP SCH (20:06)
[2022-01-05] MEDS: Lacosamide 200 MG in Sodium Chloride 0.9% 50 ML IVPB SCH (20:33)
[2022-01-05] MEDS: Fosphenytoin Sodium 200 MG in Sodium Chloride 0.9% 50 ML IVPB SCH (20:33)
[2022-01-05] MEDS: Atorvastatin Calcium 40 MG TAB PO SCH (20:34)
[2022-01-05] MEDS: Lorazepam (BATCHED) 2 MG/ML SYR SLOW IVP PRN (20:50)
[2022-01-05 21:44] LABS: SARS-CoV-2 NAA Rapid Test Not Detected (NotDetected)
[2022-01-06] MEDS: Lorazepam (BATCHED) 2 MG/ML SYR SLOW IVP PRN ×2 (03:04→18:05)
[2022-01-06 04:19] LABS: PTT 123.3 sec (22.9-36.1)
[2022-01-06] MEDS: Diltiazem HCl SR 60 mg Capsule PO SCH ×2 (09:56→20:58)
[2022-01-06] MEDS: Polyethylene Glycol 3350 17 GM Packet PO SCH (09:57)
[2022-01-06] MEDS: Senokot S 8.6-50 MG TAB PO SCH ×2 (09:57→20:59)
[2022-01-06] MEDS: levETIRAcetam 500 MG/5 ML VIAL SLOW IVP SCH ×2 (09:59→21:55)
[2022-01-06] MEDS: Lacosamide 200 MG in Sodium Chloride 0.9% 50 ML IVPB SCH ×2 (10:16→21:55)
[2022-01-06] MEDS: Fosphenytoin Sodium 200 MG in Sodium Chloride 0.9% 50 ML IVPB SCH ×2 (10:16→21:54)
[2022-01-06 11:24] VITALS: BMI 18.5
[2022-01-06] MEDS ORDERED: Lorazepam (BATCHED) 2 MG/ML SYR SLOW IVP SCH (12:45)
[2022-01-06] MEDS ORDERED: levETIRAcetam 500 MG/5 ML VIAL SLOW IVP SCH (12:45)
[2022-01-06] MEDS: Heparin 10,000 UNITS/ 10 ML VIAL SLOW IVP SCH (13:03)
[2022-01-06] MEDS ORDERED: Sodium Chloride 0.9% 1,000 ML IV SCH (17:00)
[2022-01-06] MEDS: Heparin 25,000 units/D5W 500 ML IV SCH (17:40)
[2022-01-06] MEDS: Atorvastatin Calcium 40 MG TAB PO SCH (20:58)
[2022-01-06 22:46] LABS: PTT 116.9 sec (22.9-36.1)
[2022-01-06 23:45] VITALS: TEMP 98
== END 2022-01-07 02:31 | disposition short-term general hospital (02) | DRG 299 ==
LOC: ERS 18:56 → 2NO 21:44 → CCU 01-05 08:08 → IMCU/EMU 01-05 13:45
PROVIDERS: ADMIT Student in an Organized Health Care Education/Training Program; ATTEND Hospitalist
PROC: 0D9670Z Drainage of Stomach with Drainage Device, Via Natural or Artificial Opening (ICD-10-PCS; principal; 2021-12-24)
PROC: 0DJ08ZZ Inspection of Upper Intestinal Tract, Via Natural or Artificial Opening Endoscopic (ICD-10-PCS; 2021-12-25)
DX: I74.8 Embolism and thrombosis of other arteries (principal); K55.059 Acute (reversible) ischemia of intestine, part and extent unspecified; Z68.1 Body mass index [BMI] 19.9 or less, adult; R47.01 Aphasia; Z20.822 Contact with and (suspected) exposure to COVID-19; I11.0 Hypertensive heart disease with heart failure; I50.9 Heart failure, unspecified; G40.901 Epilepsy, unspecified, not intractable, with status epilepticus; I48.0 Paroxysmal atrial fibrillation; R63.6 Underweight; E78.5 Hyperlipidemia, unspecified; F12.10 Cannabis abuse, uncomplicated; F17.210 Nicotine dependence, cigarettes, uncomplicated; Z86.73 Personal history of transient ischemic attack (TIA), and cerebral infarction without residual deficits; Z79.899 Other long term (current) drug therapy; Z95.2 Presence of prosthetic heart valve; K76.0 Fatty (change of) liver, not elsewhere classified; K31.89 Other diseases of stomach and duodenum; R93.3 Abnormal findings on diagnostic imaging of other parts of digestive tract
CPT/HCPCS: 36415; 36416; 70450; 70496; 70498; 70551; 74018; 74174; 74177; 80048; 80053; 81001; 81003; 81015; 83605; 83690; 83735; 85014; 85018; 85025; 85049; 85610; 85670; 85730; 87811; 93005; 93010; 94760; 95712; 95816; 95819; 95957; 96374; 96375; C9113; C9254; J0360; J1644; J1953; J2060; J2250; J2270; J2405; J2704; J3010; J7050; Q0162; Q2009; Q9967; U0002; U0003; U0005

== ENCOUNTER 2023-03-27 12:05 | Inpatient (IN) | payer MEDICARE, OTHER, SELFPAY ==
[2023-03-27] MEDS ORDERED: Rocuronium Bromide 10 MG/ML (10ML VIAL) ONE (12:16)
[2023-03-27 12:28] LABS: Hematocrit 43.4 % (42.0-52.0); Hemoglobin 14.7 g/dL (14.0-18.0); Manual Diff?? YES; Mean Corpuscular HGB CONC 33.9 g/dL (32.0-36.0); Mean Corpuscular Hemoglobin 34.4 pg (27.0-31.0); Mean Corpuscular Volume 101.6 fl (78.0-98.0); Mean Platelet Volume 11.2 fL (7.4-10.4); Platelet Count 145 10x3/uL (130-400); Red Blood Cell (RBC) Count 4.27 mill/uL (4.70-6.10)
[2023-03-27 12:30] LABS: Delete Auto Diff?? YES
[2023-03-27 12:39] LABS: INR-International Normal Ratio 0.9; PTT 34.3 sec (22.9-36.1); Prothrombin Time 12.7 sec (12.0-14.7)
[2023-03-27 12:40] LABS: ALT (SGPT) 32 U/L (8-55); AST (SGOT) 51 U/L (5-34); Albumin 3.7 g/dL (3.5-5.0); Alkaline Phosphatase 86 U/L (40-110); Anion Gap 15 mmol/L (10-20); BUN (Urea Nitrogen) 10 mg/dL (8.4-25.7); Bilirubin, Total 0.5 mg/dL (0.2-1.2); Calc. Creatinine Clearance 0 mL/min (70-130); Calcium 8.3 mg/dL (7.8-10.44); Carbon Dioxide 23 mmol/L (22-29); Chloride 106 mmol/L (98-107); Estimated GFR 104; Globulin 3.1 g/dL (2.4-3.5); Glucose 100 mg/dL (70-105); Potassium 3.9 mmol/L (3.5-5.1); Protein, Total 6.8 g/dL (6.0-8.3); Sodium 140 mmol/L (136-145)
[2023-03-27 12:44] LABS: Troponin I 0.013 ng/mL (< 0.028)
[2023-03-27 12:44] LABS: Actual Bicarbonate (HCO3a) 23.7 mEq/L (22-28); Analyzer IN Cardio ER; Base Excess (BEa) -1.2 mEq/L (-2.0 to +3.0); CO2 Tension 40.3 mmHg (35.0-45.0); Calcium, Ionized (arterial) 1.06 mmol/L (1.12-1.30); Carboxyhemoglobin (COHb) 1.3 gm% (0.0-3.0); Hematocrit-ABG 42 % (42.0-52.0); Hemoglobin (Hb) 14.3 g/dL (14.0-18.0); O2 Tension (PaO2), arterial 359.7 mmHg (80.0-100.0); Potassium - ABG Lab 3.39 mmol/L (3.70-5.30); pH, Arterial 7.387 (7.35-7.45)
[2023-03-27 12:54] LABS: Puncture Site RBA
[2023-03-27 13:00] LABS: ALV-art Gradient 302.925 mmHg (0-20)
[2023-03-27 13:04] LABS: Band 6 % (5-11); Burr Cells SLIGHT = 2-5 cells HPF (0-1); CellaVision Operator ID LAB.KB; Large Platelets 4.1 % (0-5); Lymphocytes 31 % (21-51); Macrocytosis SLIGHT = 6-15 cells HPF (0-5); Monocytes 5 % (0-10); Neutrophil 44 % (42-75); Platelet Adequacy Comment Platelets Normal; Polychromasia SLIGHT = 2-3 cells HPF (0-2); Reactive Lymphocytes 13 % (0-10); Smudge Cells 59.2 %; Total Cell Count 98
[2023-03-27] MEDS ORDERED: fentaNYL 50 mcg/mL 1 mL Vial ONE (14:25)
[2023-03-27] MEDS ORDERED: levETIRAcetam 500 MG/5 ML VIAL ONE ×2 (14:53→15:51)
[2023-03-27 15:34] LABS: Bilirubin Negative (Negative); Blood, Urine 3+ (Negative); CAUTI Indications for Culture Alt mental st,lethar; Clarity Clear (Clear); Glucose, Urine (Dipstick) Normal (Negative); Ketone, Urine Negative (Negative); Leukocyte Negative Leu/uL (Negative); Nitrite Negative (Negative); Protein, Urine (Dipstick) 100 mg/dL (Neg-Trace); RBC/HPF Greater than 50 HPF (0-3); Squamous Epithelial None Seen HPF (0-3); Urobilinogen Normal mg/dL (Less than 2); pH, Urine 6.5 (5.0-9.0)
[2023-03-27 15:35] LABS: Bacteria/HPF 1+ HPF (None Seen)
[2023-03-27 15:36] LABS: Urine Culture Reflex No No
[2023-03-27 15:39] LABS: Specific Gravity, Urine 1.057 (1.002-1.036)
[2023-03-27] MEDS ORDERED: Aspirin 300 MG Suppository ONE (15:53)
[2023-03-27] MEDS ORDERED: Propofol 1,000 MG/100 ML VIAL IV SCH (16:15)
[2023-03-27] MEDS ORDERED: Sodium Chloride 0.9% 1,000 ML IV SCH (16:30)
[2023-03-27 16:31] LABS: Amphetamine Not Detected (NotDetected); Barbiturates Screen Not Detected (NotDetected); Benzodiazepine Screen Not Detected (NotDetected); Cocaine Metabolite Screen Detected (NotDetected); Methadone Not Detected (NotDetected); Methamphetamine Not Detected (NotDetected); Opiate Screen Not Detected (NotDetected); Oxycodone Screen Not Detected (NotDetected); Phencyclidine (PCP) Not Detected (NotDetected); THC/Cannabinoid Screen Not Detected (NotDetected); Tricyclic Screen Not Detected (NotDetected)
[2023-03-27 16:52] LABS: Acetaminophen Less than 10 mcg/mL (10.0-30.0); Alcohol Less than 10.0 mg/dL (Less than 10); Salicylate Less than 8.0 mg/dL (15.0-30.0)
[2023-03-27] MEDS ORDERED: Ventilator Sedation Protocol FS PRN (17:30)
[2023-03-27] MEDS ORDERED: DISCONTINUE PREVIOUS NARCOTIC PAIN MEDICATIONS AND BENZODIAZEPINES FS SCH (17:45)
[2023-03-27] MEDS ORDERED: Propofol BOLUS 1,000 MG/100 ML VIAL IV PRN (17:45)
[2023-03-27] MEDS ORDERED: Fentanyl BOLUS 250 ML IVPB PRN (17:45)
[2023-03-27] MEDS ORDERED: Morphine 2 MG/ML VIAL SLOW IVP PRN (17:45)
[2023-03-28] MEDS: Dextrose 5%-Lactated Ringers 1,000 ML IV SCH ×2 (01:39→10:24)
[2023-03-28] MEDS: Propofol 1,000 MG/100 ML VIAL IV PRN (01:40)
[2023-03-28 05:13] LABS: Anion Gap 11 mmol/L (10-20); BUN (Urea Nitrogen) 11 mg/dL (8.4-25.7); Calc. Creatinine Clearance 85 mL/min (70-130); Calcium 7.9 mg/dL (7.8-10.44); Carbon Dioxide 26 mmol/L (22-29); Chloride 108 mmol/L (98-107); Estimated GFR 103; Glucose 83 mg/dL (70-105); Potassium 3.5 mmol/L (3.5-5.1); Sodium 141 mmol/L (136-145)
[2023-03-28 05:19] LABS: Hematocrit 39.3 % (42.0-52.0); Hemoglobin 13.1 g/dL (14.0-18.0); Manual Diff?? YES; Mean Corpuscular HGB CONC 33.3 g/dL (32.0-36.0); Mean Corpuscular Hemoglobin 33.8 pg (27.0-31.0); Mean Corpuscular Volume 101.3 fl (78.0-98.0); Mean Platelet Volume 11.7 fL (7.4-10.4); Platelet Count 124 10x3/uL (130-400); RBC Distribution Width 14.5 % (11.5-14.5); Red Blood Cell (RBC) Count 3.88 mill/uL (4.70-6.10); White Blood Cell (WBC) Count 5.1 10x3/uL (4.8-10.8)
[2023-03-28 05:20] LABS: Delete Auto Diff?? YES
[2023-03-28 05:53] LABS: Band 5 % (5-11); CellaVision Operator ID lab.abc; Lymphocytes 14 % (21-51); Monocytes 4 % (0-10); Neutrophil 70 % (42-75); Platelet Adequacy Comment Platelets Decreased; RBC Morphology Within Normal Limits; Reactive Lymphocytes 4 % (0-10); Smudge Cells 25.3 %; Total Cell Count 99
[2023-03-28] MEDS ORDERED: Electrolyte Replacement Protocol 1 EACH FS SCH (06:15)
[2023-03-28 08:09] LABS: Actual Bicarbonate (HCO3a) 27.4 mEq/L (22-28); Base Excess (BEa) 1.6 mEq/L (-2.0 to +3.0); CO2 Tension 47.3 mmHg (35.0-45.0); Calcium, Ionized (arterial) 1.09 mmol/L (1.12-1.30); Carboxyhemoglobin (COHb) 0.6 gm% (0.0-3.0); Hematocrit-ABG 41 % (42.0-52.0); Hemoglobin (Hb) 13.8 g/dL (14.0-18.0); O2 Tension (PaO2), arterial 70.3 mmHg (80.0-100.0); Potassium - ABG Lab 3.28 mmol/L (3.70-5.30)
[2023-03-28 08:11] LABS: Puncture Site LBA
[2023-03-28 08:12] LABS: ALV-art Gradient 155.775 mmHg (0-20)
[2023-03-28] MEDS ORDERED: Succinylcholine 200 MG/10 ml SYRINGE FS ONE (08:31)
[2023-03-28] MEDS ORDERED: PROPOFOL 200 MG/20 ML VIAL ONE (08:31)
[2023-03-28] MEDS: Fentanyl CADD 100 ML IV SCH ×2 (08:42→16:05)
[2023-03-28] MEDS: Potassium Chloride 20 MEQ in Premix 1 BAG IVPB SCH ×2 (10:23→12:09)
[2023-03-28] MEDS: levETIRAcetam 500 MG/5 ML VIAL SLOW IVP SCH ×2 (10:24→20:44)
[2023-03-28] MEDS: Pantoprazole 40 MG VIAL IVP SCH (10:24)
[2023-03-28] MEDS: Aspirin 300 MG Suppository PR SCH (10:24)
[2023-03-28] MEDS: Lorazepam 2 MG/ML VIAL SLOW IVP PRN (15:38)
[2023-03-28] MEDS ORDERED: PROPOFOL 200 MG/20 ML VIAL IV SCH (16:30)
[2023-03-28] MEDS ORDERED: Succinylcholine 200 MG/10 ml SYRINGE FS SCH (16:30)
[2023-03-28] MEDS: Acetaminophen 325 MG TAB PER TUBE PRN (17:40)
[2023-03-28 19:55] LABS: Troponin I 0.067 ng/mL (< 0.028)
[2023-03-28] MEDS: Atorvastatin Calcium 40 MG TAB PER TUBE SCH (20:43)
[2023-03-29] MEDS ORDERED: Amiodarone 150 MG, Admixture Fee 1 EACH in Dextrose 5% in Water 100 ML IVPB SCH (01:45)
[2023-03-29] MEDS: Dextrose 5%-Lactated Ringers 1,000 ML IV SCH ×3 (01:56→19:24)
[2023-03-29] MEDS: Amiodarone 450 MG in Dextrose 5% in Water 250 ML IVPB SCH ×2 (02:06→10:59)
[2023-03-29 03:27] LABS: Bacteria/HPF None Seen HPF (None Seen); Bilirubin Negative (Negative); Blood, Urine Negative (Negative); CAUTI Indications for Culture Fever or rigors; Clarity Clear (Clear); Glucose, Urine (Dipstick) Normal (Negative); Ketone, Urine Negative (Negative); Leukocyte Negative Leu/uL (Negative); Nitrite Negative (Negative); Protein, Urine (Dipstick) 30 mg/dL (Neg-Trace); RBC/HPF 0-3 HPF (0-3); Specific Gravity, Urine 1.025 (1.002-1.036); Squamous Epithelial 0-3 HPF (0-3); Urobilinogen Normal mg/dL (Less than 2); pH, Urine 5.5 (5.0-9.0)
[2023-03-29 03:28] LABS: #Monocytes 0.7 thou/uL (0.11-0.59); #Neutrophils 11.5 thou/uL (1.40-6.50); %Basophils 0.2 % (0.0-1.0); %Eosinophils 0.1 % (0.0-10.0); %Lymphocytes 7.5 % (21.0-51.0); %Monocytes 5.1 % (0.0-10.0); %Neutrophils 86.6 % (42.0-75.0); Hematocrit 41.8 % (42.0-52.0); Hemoglobin 13.6 g/dL (14.0-18.0); Mean Corpuscular HGB CONC 32.5 g/dL (32.0-36.0); Mean Corpuscular Hemoglobin 33.4 pg (27.0-31.0); Mean Corpuscular Volume 102.7 fl (78.0-98.0); Mean Platelet Volume 11.3 fL (7.4-10.4); RBC Distribution Width 14.7 % (11.5-14.5); Red Blood Cell (RBC) Count 4.07 mill/uL (4.70-6.10); White Blood Cell (WBC) Count 13.3 10x3/uL (4.8-10.8)
[2023-03-29 03:29] LABS: Urine Culture Reflex Yes Yes
[2023-03-29 03:33] LABS: Platelet Count 124 10x3/uL (130-400)
[2023-03-29 03:46] LABS: Lactic Acid 0.8 mmol/L (0.5-2.2)
[2023-03-29 03:52] LABS: ALT (SGPT) 24 U/L (8-55); AST (SGOT) 42 U/L (5-34); Albumin 3.3 g/dL (3.4-4.8); Alkaline Phosphatase 83 U/L (40-110); Anion Gap 13 mmol/L (10-20); BUN (Urea Nitrogen) 12 mg/dL (8.4-25.7); Calc. Creatinine Clearance 79 mL/min (70-130); Calcium 8.1 mg/dL (7.8-10.44); Carbon Dioxide 27 mmol/L (23-31); Chloride 108 mmol/L (98-107); Estimated GFR 96; Globulin 2.9 g/dL (2.4-3.5); Glucose 143 mg/dL (80-115); Magnesium 1.7 mg/dL (1.6-2.6); Potassium 3.6 mmol/L (3.5-5.1); Protein, Total 6.2 g/dL (5.8-8.1); Sodium 144 mmol/L (136-145)
[2023-03-29 03:56] LABS: Cardiac Risk 2.5 (Less than 4.5)
[2023-03-29] MEDS: Acetaminophen 325 MG TAB PER TUBE PRN ×2 (03:59→21:20)
[2023-03-29] MEDS ORDERED: Vancomycin (BATCH) 1.5 GM in Premix 1 BAG IVPB SCH (04:00)
[2023-03-29 04:15] LABS: HIV (1/2) Antibody/Antigen Non-Reactive (NonReactive); HIV 1/2 INDEX 0.16 S/CO (<1.00); Thyroid Stimulating Hormone 0.5576 uIU/mL (0.35-4.94)
[2023-03-29] MEDS ORDERED: Vancomycin (BATCH) 1.25 GM in Premix 1 BAG IVPB SCH (04:15)
[2023-03-29] MEDS ORDERED: Magnesium 2 GM/50 ML(in water) 2 GM in Premix 1 BAG IVPB SCH (04:15)
[2023-03-29] MEDS: Cefepime 2 GM in Sodium Chloride 0.9% 100 ML IVPB SCH ×2 (05:38→17:12)
[2023-03-29] MEDS: Fentanyl CADD 100 ML IV SCH (05:38)
[2023-03-29] MEDS: levETIRAcetam 500 MG/5 ML VIAL SLOW IVP SCH ×2 (09:49→21:14)
[2023-03-29] MEDS: Pantoprazole 40 MG VIAL IVP SCH (09:50)
[2023-03-29] MEDS ORDERED: Aspirin 325 MG TAB PER TUBE SCH (10:00)
[2023-03-29] MEDS: Aspirin 300 MG Suppository PR SCH (10:35)
[2023-03-29 12:38] LABS: Syphilis Antibody Nonreactive (Nonreactive); Syphilis Antibody Index 0.07 S/CO (<1.00 Non-Reactive)
[2023-03-29] MEDS: Propofol 1,000 MG/100 ML VIAL IV PRN (14:26)
[2023-03-29] MEDS ORDERED: Dexmedetomidine In 0.9 % NaCl 100 ML IVPB SCH (15:45)
[2023-03-29] MEDS: Lorazepam 2 MG/ML VIAL SLOW IVP PRN ×2 (16:55→22:16)
[2023-03-29] MEDS: Vancomycin 1 GM in Premix 1 BAG IVPB SCH (19:23)
[2023-03-29] MEDS: Atorvastatin Calcium 40 MG TAB PER TUBE SCH (21:14)
[2023-03-29] MEDS ORDERED: Piperacillin/Tazobactam 3.375 GM in Sodium Chloride 0.9% 100 ML IVPB SCH (23:15)
[2023-03-30] MEDS: Fentanyl CADD 100 ML IV SCH (00:38)
[2023-03-30] MEDS: Amiodarone 450 MG in Dextrose 5% in Water 250 ML IVPB SCH ×2 (01:53→17:07)
[2023-03-30] MEDS: Piperacillin/Tazobactam 3.375 GM in Sodium Chloride 0.9% 100 ML IVPB SCH ×3 (04:04→18:54)
[2023-03-30] MEDS: Dextrose 5%-Lactated Ringers 1,000 ML IV SCH ×2 (04:05→11:22)
[2023-03-30 05:05] LABS: #Monocytes 0.9 thou/uL (0.11-0.59); #Neutrophils 7.5 thou/uL (1.40-6.50); %Basophils 0.2 % (0.0-1.0); %Eosinophils 0.4 % (0.0-10.0); %Lymphocytes 15.6 % (21.0-51.0); %Monocytes 8.7 % (0.0-10.0); %Neutrophils 74.3 % (42.0-75.0); Hematocrit 42.8 % (42.0-52.0); Hemoglobin 13.9 g/dL (14.0-18.0); Mean Corpuscular HGB CONC 32.5 g/dL (32.0-36.0); Mean Corpuscular Hemoglobin 34.7 pg (27.0-31.0); Mean Corpuscular Volume 106.7 fl (78.0-98.0); Mean Platelet Volume 11.5 fL (7.4-10.4); Platelet Count 130 10x3/uL (130-400); RBC Distribution Width 14.6 % (11.5-14.5); Red Blood Cell (RBC) Count 4.01 mill/uL (4.70-6.10); White Blood Cell (WBC) Count 10.1 10x3/uL (4.8-10.8)
[2023-03-30] MEDS: Vancomycin 1 GM in Premix 1 BAG IVPB SCH ×2 (05:15→17:35)
[2023-03-30 07:03] LABS: Anion Gap 16 mmol/L (10-20); BUN (Urea Nitrogen) 12 mg/dL (8.4-25.7); Calc. Creatinine Clearance 78 mL/min (70-130); Calcium 8.2 mg/dL (7.8-10.44); Carbon Dioxide 20 mmol/L (23-31); Chloride 110 mmol/L (98-107); Estimated GFR 95; Glucose 91 mg/dL (80-115); Magnesium 2.2 mg/dL (1.6-2.6); Potassium 3.5 mmol/L (3.5-5.1); Sodium 142 mmol/L (136-145)
[2023-03-30] MEDS: Lorazepam 2 MG/ML VIAL SLOW IVP PRN (08:45)
[2023-03-30 09:05] LABS: Troponin I 0.027 ng/mL (< 0.028)
[2023-03-30] MEDS: levETIRAcetam 500 MG/5 ML VIAL SLOW IVP SCH ×2 (10:41→21:12)
[2023-03-30] MEDS: Senokot S 8.6-50 MG TAB PO SCH ×2 (10:42→21:12)
[2023-03-30] MEDS: Aspirin 325 MG TAB PER TUBE SCH (10:42)
[2023-03-30] MEDS: Polyethylene Glycol 3350 17 GM Packet PO SCH (10:42)
[2023-03-30] MEDS: Lansoprazole 15 MG/5 ML (BATCHED)UDCUP PER TUBE SCH (10:43)
[2023-03-30] MEDS: Potassium Chloride 20 MEQ in Premix 1 BAG IVPB SCH ×2 (10:44→13:39)
[2023-03-30] MEDS: Dexmedetomidine 400 MCG, Admixture Fee 1 EACH in Sodium Chloride 0.9% 96 ML IVPB SCH (11:23)
[2023-03-30] MEDS: Pantoprazole 40 MG VIAL IVP SCH (13:40)
[2023-03-30 17:36] LABS: Vancomycin, Trough 11.5 ug/mL
[2023-03-30] MEDS: Atorvastatin Calcium 40 MG TAB PER TUBE SCH (21:53)
[2023-03-31] MEDS: Dextrose 5%-Lactated Ringers 1,000 ML IV SCH ×2 (01:34→10:18)
[2023-03-31] MEDS: Fentanyl CADD 100 ML IV SCH ×2 (02:09→20:32)
[2023-03-31] MEDS: Piperacillin/Tazobactam 3.375 GM in Sodium Chloride 0.9% 100 ML IVPB SCH ×3 (03:01→19:45)
[2023-03-31] MEDS: Vancomycin (BATCH) 1.25 GM in Premix 1 BAG IVPB SCH ×2 (06:15→18:17)
[2023-03-31] MEDS: levETIRAcetam 500 MG/5 ML VIAL SLOW IVP SCH ×2 (08:23→20:57)
[2023-03-31] MEDS: Senokot S 8.6-50 MG TAB PO SCH ×2 (08:24→20:56)
[2023-03-31] MEDS: Aspirin 325 MG TAB PER TUBE SCH (08:24)
[2023-03-31] MEDS: Polyethylene Glycol 3350 17 GM Packet PO SCH (08:25)
[2023-03-31] MEDS: Amiodarone 450 MG in Dextrose 5% in Water 250 ML IVPB SCH (08:44)
[2023-03-31] MEDS: Dexmedetomidine 400 MCG, Admixture Fee 1 EACH in Sodium Chloride 0.9% 96 ML IVPB SCH (08:44)
[2023-03-31] MEDS ORDERED: Lansoprazole 15 MG/5 ML (BATCHED)UDCUP PER TUBE SCH (09:00)
[2023-03-31] MEDS: Lansoprazole 15 MG/5 ML (BATCHED)UDCUP PER TUBE SCH (10:16)
[2023-03-31] MEDS ORDERED: Ipratropium/Albuterol 3 ML NEB NEB PRN (11:18)
[2023-03-31] MEDS: Lorazepam 2 MG/ML VIAL SLOW IVP PRN (20:37)
[2023-03-31] MEDS: Atorvastatin Calcium 40 MG TAB PER TUBE SCH (20:57)
[2023-04-01] MEDS: Dextrose 5%-Lactated Ringers 1,000 ML IV SCH ×4 (00:04→23:30)
[2023-04-01 00:12] LABS: HSV 1 - DNA Negative (Negative); HSV 2 - DNA Negative (Negative)
[2023-04-01] MEDS: Amiodarone 450 MG in Dextrose 5% in Water 250 ML IVPB SCH ×2 (01:29→15:47)
[2023-04-01] MEDS: Piperacillin/Tazobactam 3.375 GM in Sodium Chloride 0.9% 100 ML IVPB SCH ×3 (03:20→20:51)
[2023-04-01 04:56] LABS: Actual Bicarbonate (HCO3v) 28.2 mEq/L (22-28); Base Excess 2.5 mEq/L (-2.0 to +3.0); Calcium, Ionized (venous) 1.06 mmol/L (1.16-1.32); Chloride (VBG) 106 mmol/L (98-106); Hematocrit-VBG 36 % (42.0-52.0); Hemoglobin (Hb) 12.2 g/dL (12.6-17.4); Potassium (VBG) 3.93 mmol/L (3.70-5.30); Sodium 138 mmol/L (133-146); pH (venous) 7.383 (7.32-7.43)
[2023-04-01 05:10] LABS: #Eosinphils 0.2 thou/uL (0.0-0.7); #Monocytes 0.6 thou/uL (0.11-0.59); #Neutrophils 3.5 thou/uL (1.40-6.50); %Basophils 0.4 % (0.0-1.0); %Eosinophils 3.3 % (0.0-10.0); %Lymphocytes 15.6 % (21.0-51.0); %Monocytes 12.3 % (0.0-10.0); Hematocrit 35.2 % (42.0-52.0); Hemoglobin 11.4 g/dL (14.0-18.0); Mean Corpuscular HGB CONC 32.4 g/dL (32.0-36.0); Mean Corpuscular Hemoglobin 33.7 pg (27.0-31.0); Mean Corpuscular Volume 104.1 fl (78.0-98.0); Mean Platelet Volume 11.4 fL (7.4-10.4); Platelet Count 191 10x3/uL (130-400); RBC Distribution Width 14.4 % (11.5-14.5); Red Blood Cell (RBC) Count 3.38 mill/uL (4.70-6.10); White Blood Cell (WBC) Count 5.2 10x3/uL (4.8-10.8)
[2023-04-01 05:37] LABS: Anion Gap 10 mmol/L (10-20); BUN (Urea Nitrogen) 10 mg/dL (8.4-25.7); Calc. Creatinine Clearance 92 mL/min (70-130); Calcium 7.9 mg/dL (7.8-10.44); Carbon Dioxide 25 mmol/L (23-31); Chloride 107 mmol/L (98-107); Estimated GFR 98; Glucose 130 mg/dL (80-115); Magnesium 1.8 mg/dL (1.6-2.6); Potassium 3.9 mmol/L (3.5-5.1); Sodium 138 mmol/L (136-145)
[2023-04-01] MEDS: Vancomycin (BATCH) 1.25 GM in Premix 1 BAG IVPB SCH ×2 (05:52→20:53)
[2023-04-01] MEDS ORDERED: Magnesium 2 GM/50 ML(in water) 2 GM in Premix 1 BAG IVPB SCH (08:00)
[2023-04-01] MEDS: Lansoprazole 15 MG/5 ML (BATCHED)UDCUP PER TUBE SCH (09:30)
[2023-04-01] MEDS: levETIRAcetam 500 MG/5 ML VIAL SLOW IVP SCH ×2 (09:30→20:53)
[2023-04-01] MEDS: Senokot S 8.6-50 MG TAB PO SCH ×2 (09:32→20:54)
[2023-04-01] MEDS: Polyethylene Glycol 3350 17 GM Packet PO SCH (09:33)
[2023-04-01] MEDS: Aspirin 325 MG TAB PER TUBE SCH (09:33)
[2023-04-01] MEDS ORDERED: Glycopyrrolate 0.2 MG/ML 5 ML SYRINGE SLOW IVP ONE (09:56)
[2023-04-01] MEDS ORDERED: GLYCOPYRROLATE/PF 0.2 MG/ML VIAL SLOW IVP SCH (10:15)
[2023-04-01] MEDS ORDERED: Racepinephrine 2.25% 0.5 ML NEB ONE (10:32)
[2023-04-01] MEDS: Scopolamine 1 mg/72 hour Patch TD SCH (11:27)
[2023-04-01] MEDS: Racepinephrine 2.25% 0.5 ML NEB NEB SCH ×2 (12:42→18:23)
[2023-04-01] MEDS: Dexmedetomidine 400 MCG, Admixture Fee 1 EACH in Sodium Chloride 0.9% 96 ML IVPB SCH (15:48)
[2023-04-01 17:28] LABS: Vancomycin, Trough 17.2 ug/mL
[2023-04-01] MEDS: Atorvastatin Calcium 40 MG TAB PER TUBE SCH (20:51)
[2023-04-02] MEDS ORDERED: Hyaluronidase, Human Recomb. 150 UNITS/ML VIAL SC SCH (01:15)
[2023-04-02] MEDS ORDERED: Hydrocortisone 1% Cream 30 GM TUBE TOP PRN (01:30)
[2023-04-02] MEDS: Piperacillin/Tazobactam 3.375 GM in Sodium Chloride 0.9% 100 ML IVPB SCH ×3 (03:12→18:40)
[2023-04-02] MEDS: Ipratropium/Albuterol 3 ML NEB NEB SCH ×4 (03:17→19:08)
[2023-04-02 04:14] LABS: #Eosinphils 0.1 thou/uL (0.0-0.7); #Neutrophils 6.2 thou/uL (1.40-6.50); %Basophils 0.4 % (0.0-1.0); %Eosinophils 1.3 % (0.0-10.0); %Lymphocytes 10.5 % (21.0-51.0); %Monocytes 11.6 % (0.0-10.0); %Neutrophils 75.8 % (42.0-75.0); Hematocrit 38.2 % (42.0-52.0); Hemoglobin 12.8 g/dL (14.0-18.0); Mean Corpuscular HGB CONC 33.5 g/dL (32.0-36.0); Mean Corpuscular Hemoglobin 33.9 pg (27.0-31.0); Mean Corpuscular Volume 101.1 fl (78.0-98.0); Mean Platelet Volume 11.4 fL (7.4-10.4); Platelet Count 225 10x3/uL (130-400); RBC Distribution Width 13.6 % (11.5-14.5); Red Blood Cell (RBC) Count 3.78 mill/uL (4.70-6.10); White Blood Cell (WBC) Count 8.2 10x3/uL (4.8-10.8)
[2023-04-02 04:49] LABS: Anion Gap 14 mmol/L (10-20); BUN (Urea Nitrogen) 10 mg/dL (8.4-25.7); Calc. Creatinine Clearance 93 mL/min (70-130); Calcium 8.5 mg/dL (7.8-10.44); Carbon Dioxide 23 mmol/L (23-31); Chloride 106 mmol/L (98-107); Estimated GFR 98; Glucose 99 mg/dL (80-115); Magnesium 2.1 mg/dL (1.6-2.6); Potassium 3.9 mmol/L (3.5-5.1); Sodium 139 mmol/L (136-145)
[2023-04-02] MEDS ORDERED: DC Sedation Protocol FS ONE (04:51)
[2023-04-02 05:00] LABS: Actual Bicarbonate (HCO3a) 24.9 mEq/L (22-28); Base Excess (BEa) -0.9 mEq/L (-2.0 to +3.0); CO2 Tension 45.6 mmHg (35.0-45.0); Calcium, Ionized (arterial) 1.15 mmol/L (1.12-1.30); Carboxyhemoglobin (COHb) 0.4 gm% (0.0-3.0); Hematocrit-ABG 38 % (42.0-52.0); O2 Tension (PaO2), arterial 90.7 mmHg (> 80.0); Potassium - ABG Lab 3.63 mmol/L (3.70-5.30); Puncture Site RRA; pH, Arterial 7.355 (7.35-7.45)
[2023-04-02] MEDS ORDERED: Sterile Water 10 ML VIAL FS PRN (05:00)
[2023-04-02] MEDS ORDERED: OLANZapine 10 MG VIAL IM SCH (05:00)
[2023-04-02] MEDS: Vancomycin (BATCH) 1.25 GM in Premix 1 BAG IVPB SCH (06:40)
[2023-04-02] MEDS: Racepinephrine 2.25% 0.5 ML NEB NEB SCH (07:41)
[2023-04-02] MEDS ORDERED: Lorazepam 2 MG/ML VIAL SLOW IVP PRN (08:19)
[2023-04-02] MEDS ORDERED: Glycopyrrolate 0.2 MG/ML 5 ML SYRINGE SLOW IVP SCH (09:00)
[2023-04-02] MEDS: Aspirin 325 MG TAB PER TUBE SCH (09:50)
[2023-04-02] MEDS: Senokot S 8.6-50 MG TAB PO SCH ×2 (09:50→22:18)
[2023-04-02] MEDS: levETIRAcetam 500 MG/5 ML VIAL SLOW IVP SCH ×2 (09:51→21:55)
[2023-04-02] MEDS: Lansoprazole 15 MG/5 ML (BATCHED)UDCUP PER TUBE SCH (09:51)
[2023-04-02] MEDS: Furosemide 40 MG/4 ML VIAL SLOW IVP SCH (09:52)
[2023-04-02] MEDS: GLYCOPYRROLATE/PF 0.2 MG/ML VIAL SLOW IVP SCH ×3 (09:53→21:55)
[2023-04-02] MEDS: Polyethylene Glycol 3350 17 GM Packet PO SCH (09:54)
[2023-04-02] MEDS: Dexmedetomidine 400 MCG, Admixture Fee 1 EACH in Sodium Chloride 0.9% 96 ML IVPB SCH (09:55)
[2023-04-02] MEDS: Amiodarone 450 MG in Dextrose 5% in Water 250 ML IVPB SCH (09:58)
[2023-04-02 17:53] LABS: Vancomycin, Trough 24.3 ug/mL
[2023-04-02] MEDS ORDERED: Vancomycin 1 GM in Premix 1 BAG IVPB SCH (18:15)
[2023-04-02] MEDS: Haloperidol Lactate 5 MG/ML VIAL SLOW IVP PRN (19:03)
[2023-04-02] MEDS ORDERED: Thiamine HCl 200 MG/2 ML VIAL SLOW IVP SCH (19:15)
[2023-04-02] MEDS: Dextrose 5%-Lactated Ringers 1,000 ML IV SCH (19:45)
[2023-04-02] MEDS: Atorvastatin Calcium 40 MG TAB PER TUBE SCH (21:00)
[2023-04-02] MEDS: Vancomycin 1 GM in Premix 1 BAG IVPB SCH (23:23)
[2023-04-03] MEDS: Haloperidol Lactate 5 MG/ML VIAL SLOW IVP PRN ×2 (00:01→19:59)
[2023-04-03] MEDS: Ipratropium/Albuterol 3 ML NEB NEB SCH ×4 (01:15→19:12)
[2023-04-03] MEDS: Piperacillin/Tazobactam 3.375 GM in Sodium Chloride 0.9% 100 ML IVPB SCH ×3 (02:28→21:54)
[2023-04-03 04:35] LABS: Hematocrit 35.3 % (42.0-52.0); Manual Diff?? YES; Mean Corpuscular Hemoglobin 33.9 pg (27.0-31.0); Mean Corpuscular Volume 99.7 fl (78.0-98.0); Mean Platelet Volume 11.4 fL (7.4-10.4); Platelet Count 241 10x3/uL (130-400); RBC Distribution Width 13.3 % (11.5-14.5); Red Blood Cell (RBC) Count 3.54 mill/uL (4.70-6.10); White Blood Cell (WBC) Count 7.2 10x3/uL (4.8-10.8)
[2023-04-03 04:39] LABS: Delete Auto Diff?? YES
[2023-04-03 05:00] LABS: Anion Gap 9 mmol/L (10-20); BUN (Urea Nitrogen) 9 mg/dL (8.4-25.7); Calc. Creatinine Clearance 105 mL/min (70-130); Calcium 8.5 mg/dL (7.8-10.44); Carbon Dioxide 30 mmol/L (23-31); Chloride 104 mmol/L (98-107); Estimated GFR 98; Glucose 104 mg/dL (80-115); Potassium 3.5 mmol/L (3.5-5.1); Sodium 139 mmol/L (136-145)
[2023-04-03] MEDS: Dexmedetomidine 400 MCG, Admixture Fee 1 EACH in Sodium Chloride 0.9% 96 ML IVPB SCH ×2 (05:18→20:05)
[2023-04-03] MEDS ORDERED: Magnesium 2 GM/50 ML(in water) 2 GM in Premix 1 BAG IVPB SCH (06:00)
[2023-04-03] MEDS ORDERED: Vancomycin 1 GM in Premix 1 BAG IVPB SCH (06:00)
[2023-04-03 06:15] LABS: CellaVision Operator ID lab.sh2; Eosinophils 3 % (0-10); Lymphocytes 7 % (21-51); Macrocytosis SLIGHT = 6-15 cells HPF (0-5); Monocytes 5 % (0-10); Neutrophil 84 % (42-75); Ovalocytes SLIGHT = 2-5 cells HPF (0-1); Platelet Adequacy Comment Platelets Normal; Polychromasia SLIGHT = 2-3 cells HPF (0-2); Smudge Cells 7.1 %; Total Cell Count 99; Vacuoles SLIGHT
[2023-04-03] MEDS: Potassium Chloride 20 MEQ in Premix 1 BAG IVPB SCH ×2 (08:20→10:34)
[2023-04-03] MEDS: levETIRAcetam 500 MG/5 ML VIAL SLOW IVP SCH ×2 (08:23→20:02)
[2023-04-03] MEDS: Furosemide 40 MG/4 ML VIAL SLOW IVP SCH (08:23)
[2023-04-03] MEDS: Vancomycin 1 GM in Premix 1 BAG IVPB SCH ×2 (10:33→21:55)
[2023-04-03] MEDS: GLYCOPYRROLATE/PF 0.2 MG/ML VIAL SLOW IVP SCH ×3 (10:54→21:54)
[2023-04-03] MEDS: Vancomycin (BATCH) 1.25 GM in Premix 1 BAG IVPB SCH (11:22)
[2023-04-03] MEDS: Senokot S 8.6-50 MG TAB PO SCH ×2 (12:20→20:02)
[2023-04-03] MEDS: Aspirin 325 MG TAB PER TUBE SCH (12:20)
[2023-04-03] MEDS: Polyethylene Glycol 3350 17 GM Packet PO SCH (12:20)
[2023-04-03] MEDS: Lansoprazole 15 MG/5 ML (BATCHED)UDCUP PER TUBE SCH (12:20)
[2023-04-03] MEDS: Dextrose 5%-Lactated Ringers 1,000 ML IV SCH (16:44)
[2023-04-03 16:57] LABS: Potassium 3.8 mmol/L (3.5-5.1)
[2023-04-03] MEDS: Thiamine HCl 200 MG/2 ML VIAL SLOW IVP SCH (20:01)
[2023-04-03] MEDS: Famotidine/PF 20 mg/2ml Vial SLOW IVP SCH (20:02)
[2023-04-03] MEDS: Atorvastatin Calcium 40 MG TAB PER TUBE SCH (20:02)
[2023-04-03] MEDS ORDERED: GLYCOPYRROLATE/PF 0.2 MG/ML VIAL SLOW IVP SCH (21:45)
[2023-04-04] MEDS: Ipratropium/Albuterol 3 ML NEB NEB SCH ×5 (01:50→23:49)
[2023-04-04] MEDS: Piperacillin/Tazobactam 3.375 GM in Sodium Chloride 0.9% 100 ML IVPB SCH ×3 (03:39→19:42)
[2023-04-04 04:02] LABS: Hematocrit 35.6 % (42.0-52.0); Hemoglobin 12.1 g/dL (14.0-18.0); Manual Diff?? YES; Mean Platelet Volume 11.4 fL (7.4-10.4); Platelet Count 276 10x3/uL (130-400); RBC Distribution Width 13.3 % (11.5-14.5); Red Blood Cell (RBC) Count 3.56 mill/uL (4.70-6.10); White Blood Cell (WBC) Count 6.2 10x3/uL (4.8-10.8)
[2023-04-04 04:11] LABS: Delete Auto Diff?? YES
[2023-04-04 04:25] LABS: Anion Gap 11 mmol/L (10-20); BUN (Urea Nitrogen) 10 mg/dL (8.4-25.7); Calc. Creatinine Clearance 91 mL/min (70-130); Calcium 8.6 mg/dL (7.8-10.44); Carbon Dioxide 30 mmol/L (23-31); Chloride 104 mmol/L (98-107); Estimated GFR 96; Glucose 110 mg/dL (80-115); Magnesium 2.1 mg/dL (1.6-2.6); Potassium 3.6 mmol/L (3.5-5.1); Sodium 141 mmol/L (136-145)
[2023-04-04 04:39] LABS: Band 13 % (5-11); CellaVision Operator ID LAB.CLH1; Eosinophils 1 % (0-10); Large Platelets 5.9 % (0-5); Lymphocytes 15 % (21-51); Macrocytosis SLIGHT = 6-15 cells HPF (0-5); Metamyelocyte 1 % (0-0); Monocytes 11 % (0-10); Neutrophil 56 % (42-75); Platelet Adequacy Comment Platelets Normal; Polychromasia SLIGHT = 2-3 cells HPF (0-2); Reactive Lymphocytes 3 % (0-10); Total Cell Count 102
[2023-04-04] MEDS: Aspirin 325 MG TAB PER TUBE SCH (08:56)
[2023-04-04] MEDS: Furosemide 40 MG/4 ML VIAL SLOW IVP SCH (08:57)
[2023-04-04] MEDS: Scopolamine 1 mg/72 hour Patch TD SCH (08:57)
[2023-04-04] MEDS: Famotidine/PF 20 mg/2ml Vial SLOW IVP SCH ×2 (08:57→19:43)
[2023-04-04] MEDS: levETIRAcetam 500 MG/5 ML VIAL SLOW IVP SCH ×2 (08:57→19:43)
[2023-04-04] MEDS: Lansoprazole 15 MG/5 ML (BATCHED)UDCUP PER TUBE SCH (08:58)
[2023-04-04] MEDS: Polyethylene Glycol 3350 17 GM Packet PO SCH (08:59)
[2023-04-04] MEDS: Senokot S 8.6-50 MG TAB PO SCH ×2 (08:59→21:32)
[2023-04-04] MEDS: Dexmedetomidine 400 MCG, Admixture Fee 1 EACH in Sodium Chloride 0.9% 96 ML IVPB SCH (09:09)
[2023-04-04] MEDS ORDERED: Vancomycin 1 GM in Premix 1 BAG IVPB SCH (11:00)
[2023-04-04 11:32] LABS: Vancomycin, Trough 22.6 ug/mL
[2023-04-04] MEDS ORDERED: Vancomycin HCl 750 MG in Sodium Chloride 0.9% 250 ML 250 ML IVPB SCH (12:00)
[2023-04-04] MEDS: Dextrose 5%-Lactated Ringers 1,000 ML IV SCH ×2 (12:06→22:24)
[2023-04-04] MEDS ORDERED: Acetaminophen 500 MG TAB PO PRN (19:18)
[2023-04-04] MEDS: Thiamine HCl 200 MG/2 ML VIAL SLOW IVP SCH (19:43)
[2023-04-04] MEDS ORDERED: QUEtiapine 25 MG TAB PO SCH (21:00)
[2023-04-04] MEDS: Atorvastatin Calcium 40 MG TAB PER TUBE SCH (21:32)
[2023-04-05] MEDS: Vancomycin HCl 750 MG in Sodium Chloride 0.9% 250 ML 250 ML IVPB SCH ×2 (00:47→12:05)
[2023-04-05] MEDS: Piperacillin/Tazobactam 3.375 GM in Sodium Chloride 0.9% 100 ML IVPB SCH ×3 (03:11→17:47)
[2023-04-05] MEDS: Dextrose 5%-Lactated Ringers 1,000 ML IV SCH ×3 (06:30→17:48)
[2023-04-05] MEDS: Ipratropium/Albuterol 3 ML NEB NEB SCH ×4 (07:44→23:22)
[2023-04-05] MEDS: Dexmedetomidine 400 MCG, Admixture Fee 1 EACH in Sodium Chloride 0.9% 96 ML IVPB SCH (07:59)
[2023-04-05] MEDS: Haloperidol Lactate 5 MG/ML VIAL SLOW IVP PRN (08:07)
[2023-04-05] MEDS: Furosemide 40 MG/4 ML VIAL SLOW IVP SCH (08:25)
[2023-04-05] MEDS: levETIRAcetam 500 MG/5 ML VIAL SLOW IVP SCH ×2 (08:26→21:00)
[2023-04-05] MEDS: Senokot S 8.6-50 MG TAB PO SCH ×2 (08:27→21:01)
[2023-04-05] MEDS: Polyethylene Glycol 3350 17 GM Packet PO SCH (08:27)
[2023-04-05] MEDS: Famotidine/PF 20 mg/2ml Vial SLOW IVP SCH (08:27)
[2023-04-05] MEDS: Aspirin 325 MG TAB PER TUBE SCH (08:27)
[2023-04-05] MEDS: Lansoprazole 15 MG/5 ML (BATCHED)UDCUP PER TUBE SCH (08:27)
[2023-04-05] MEDS ORDERED: Aspirin 300 MG Suppository PR PRN (14:32)
[2023-04-05] MEDS: Tamsulosin HCl 0.4 MG CAP PO SCH (19:13)
[2023-04-05] MEDS: Cholecalciferol 1,000 UNITS (25 MCG) TAB PO SCH (19:13)
[2023-04-05] MEDS: Atorvastatin Calcium 40 MG TAB PER TUBE SCH (19:13)
[2023-04-05] MEDS: QUEtiapine 25 MG TAB PO SCH (19:13)
[2023-04-05] MEDS: Thiamine HCl 200 MG/2 ML VIAL SLOW IVP SCH (21:00)
[2023-04-05] MEDS: pyridOXINE 50 MG (B6) TAB PO SCH (21:00)
[2023-04-06] MEDS: Vancomycin HCl 750 MG in Sodium Chloride 0.9% 250 ML 250 ML IVPB SCH (00:28)
[2023-04-06] MEDS: Piperacillin/Tazobactam 3.375 GM in Sodium Chloride 0.9% 100 ML IVPB SCH (03:25)
[2023-04-06 05:24] LABS: #Eosinphils 0.1 thou/uL (0.0-0.7); #Monocytes 0.6 thou/uL (0.11-0.59); %Basophils 0.4 % (0.0-1.0); %Eosinophils 1.1 % (0.0-10.0); %Lymphocytes 20.5 % (21.0-51.0); %Monocytes 12.1 % (0.0-10.0); %Neutrophils 65.5 % (42.0-75.0); Hematocrit 34.3 % (42.0-52.0); Hemoglobin 11.7 g/dL (14.0-18.0); Mean Corpuscular HGB CONC 34.1 g/dL (32.0-36.0); Mean Corpuscular Hemoglobin 34.2 pg (27.0-31.0); Mean Corpuscular Volume 100.3 fl (78.0-98.0); Mean Platelet Volume 11.1 fL (7.4-10.4); Platelet Count 302 10x3/uL (130-400); RBC Distribution Width 13.9 % (11.5-14.5); Red Blood Cell (RBC) Count 3.42 mill/uL (4.70-6.10); White Blood Cell (WBC) Count 4.6 10x3/uL (4.8-10.8)
[2023-04-06 05:48] LABS: Anion Gap 11 mmol/L (10-20); BUN (Urea Nitrogen) 10 mg/dL (8.4-25.7); Calc. Creatinine Clearance 65 mL/min (70-130); Calcium 8.3 mg/dL (7.8-10.44); Carbon Dioxide 30 mmol/L (23-31); Chloride 105 mmol/L (98-107); Estimated GFR 78; Glucose 96 mg/dL (80-115); Potassium 2.9 mmol/L (3.5-5.1); Sodium 143 mmol/L (136-145)
[2023-04-06] MEDS: Ipratropium/Albuterol 3 ML NEB NEB SCH ×2 (07:51→13:12)
[2023-04-06] MEDS: Dextrose 5%-Lactated Ringers 1,000 ML IV SCH (08:12)
[2023-04-06] MEDS: Polyethylene Glycol 3350 17 GM Packet PO SCH ×2 (08:13→13:52)
[2023-04-06] MEDS: Potassium Chloride 20 MEQ TAB PO SCH ×2 (08:14→13:48)
[2023-04-06] MEDS: Senokot S 8.6-50 MG TAB PO SCH ×3 (08:14→21:26)
[2023-04-06] MEDS: Ascorbic Acid 500 mg Chewable Tablet PO SCH ×2 (08:14→13:51)
[2023-04-06] MEDS: Thiamine 100 MG TAB PO SCH ×2 (08:14→13:52)
[2023-04-06] MEDS: Aspirin 325 MG TAB PER TUBE SCH ×2 (08:14→13:51)
[2023-04-06] MEDS: Furosemide 40 MG TAB PO SCH ×2 (08:14→13:51)
[2023-04-06] MEDS: levETIRAcetam 500 MG/5 ML VIAL SLOW IVP SCH ×2 (08:14→21:26)
[2023-04-06] MEDS: Lansoprazole 15 MG/5 ML (BATCHED)UDCUP PER TUBE SCH ×2 (08:24→13:51)
[2023-04-06 11:34] LABS: Vancomycin, Trough 19.4 ug/mL
[2023-04-06] MEDS ORDERED: Ipratropium/Albuterol 3 ML NEB NEB PRN (13:20)
[2023-04-06] MEDS: Potassium Chloride 20 MEQ in Premix 1 BAG IVPB SCH ×2 (17:04→21:24)
[2023-04-06] MEDS: Atorvastatin Calcium 40 MG TAB PER TUBE SCH (21:26)
[2023-04-06] MEDS: Cholecalciferol 1,000 UNITS (25 MCG) TAB PO SCH (21:26)
[2023-04-06] MEDS: pyridOXINE 50 MG (B6) TAB PO SCH (21:26)
[2023-04-06] MEDS: QUEtiapine 25 MG TAB PO SCH (21:26)
[2023-04-06] MEDS: Tamsulosin HCl 0.4 MG CAP PO SCH (21:26)
[2023-04-07] MEDS: Nicotine 14 MG PATCH TD SCH (02:28)
[2023-04-07 06:59] LABS: Anion Gap 9 mmol/L (10-20); BUN (Urea Nitrogen) 9 mg/dL (8.4-25.7); Calc. Creatinine Clearance 72 mL/min (70-130); Calcium 8.3 mg/dL (7.8-10.44); Carbon Dioxide 28 mmol/L (23-31); Chloride 108 mmol/L (98-107); Estimated GFR 91; Glucose 78 mg/dL (80-115); Potassium 3.3 mmol/L (3.5-5.1); Sodium 142 mmol/L (136-145)
[2023-04-07] MEDS: Potassium Chloride 20 MEQ in Premix 1 BAG IVPB SCH ×3 (07:17→12:57)
[2023-04-07] MEDS: Aspirin 325 MG TAB PER TUBE SCH (09:35)
[2023-04-07] MEDS: Thiamine 100 MG TAB PO SCH (09:35)
[2023-04-07] MEDS: Ascorbic Acid 500 mg Chewable Tablet PO SCH (09:35)
[2023-04-07] MEDS: Furosemide 40 MG TAB PO SCH (09:35)
[2023-04-07] MEDS: Senokot S 8.6-50 MG TAB PO SCH ×2 (09:36→22:12)
[2023-04-07] MEDS: Polyethylene Glycol 3350 17 GM Packet PO SCH (09:36)
[2023-04-07] MEDS: levETIRAcetam 500 MG/5 ML VIAL SLOW IVP SCH ×2 (09:36→22:11)
[2023-04-07] MEDS: Lansoprazole 15 MG/5 ML (BATCHED)UDCUP PER TUBE SCH (09:37)
[2023-04-07] MEDS: QUEtiapine 25 MG TAB PO SCH (22:11)
[2023-04-07] MEDS: Tamsulosin HCl 0.4 MG CAP PO SCH (22:11)
[2023-04-07] MEDS: pyridOXINE 50 MG (B6) TAB PO SCH (22:11)
[2023-04-07] MEDS: Cholecalciferol 1,000 UNITS (25 MCG) TAB PO SCH (22:11)
[2023-04-07] MEDS: Atorvastatin Calcium 40 MG TAB PER TUBE SCH (22:11)
[2023-04-08] MEDS: Nicotine 14 MG PATCH TD SCH (03:50)
[2023-04-08 04:34] LABS: #Eosinphils 0.1 thou/uL (0.0-0.7); #Monocytes 0.5 thou/uL (0.11-0.59); #Neutrophils 3.9 thou/uL (1.40-6.50); %Basophils 0.6 % (0.0-1.0); %Eosinophils 2.3 % (0.0-10.0); %Lymphocytes 24.9 % (21.0-51.0); %Monocytes 8.5 % (0.0-10.0); %Neutrophils 63.1 % (42.0-75.0); Hematocrit 31.7 % (42.0-52.0); Hemoglobin 10.4 g/dL (14.0-18.0); Mean Corpuscular HGB CONC 32.8 g/dL (32.0-36.0); Mean Corpuscular Hemoglobin 33.8 pg (27.0-31.0); Mean Corpuscular Volume 102.9 fl (78.0-98.0); Mean Platelet Volume 11.7 fL (7.4-10.4); Platelet Count 301 10x3/uL (130-400); Red Blood Cell (RBC) Count 3.08 mill/uL (4.70-6.10); White Blood Cell (WBC) Count 6.2 10x3/uL (4.8-10.8)
[2023-04-08 05:25] LABS: Anion Gap 9 mmol/L (10-20); BUN (Urea Nitrogen) 10 mg/dL (8.4-25.7); Calc. Creatinine Clearance 71 mL/min (70-130); Calcium 8.4 mg/dL (7.8-10.44); Carbon Dioxide 27 mmol/L (23-31); Chloride 109 mmol/L (98-107); Estimated GFR 92; Glucose 74 mg/dL (80-115); Potassium 3.6 mmol/L (3.5-5.1); Sodium 141 mmol/L (136-145)
[2023-04-08] MEDS: Aspirin 325 MG TAB PER TUBE SCH (09:32)
[2023-04-08] MEDS: levETIRAcetam 500 MG/5 ML VIAL SLOW IVP SCH ×2 (09:32→20:29)
[2023-04-08] MEDS: Furosemide 40 MG TAB PO SCH (09:32)
[2023-04-08] MEDS: Ascorbic Acid 500 mg Chewable Tablet PO SCH (09:33)
[2023-04-08] MEDS: Senokot S 8.6-50 MG TAB PO SCH ×2 (09:33→20:30)
[2023-04-08] MEDS: Thiamine 100 MG TAB PO SCH (09:33)
[2023-04-08] MEDS: Lansoprazole 15 MG/5 ML (BATCHED)UDCUP PER TUBE SCH (09:33)
[2023-04-08] MEDS: Polyethylene Glycol 3350 17 GM Packet PO SCH (09:33)
[2023-04-08] MEDS: QUEtiapine 25 MG TAB PO SCH (20:29)
[2023-04-08] MEDS: Cholecalciferol 1,000 UNITS (25 MCG) TAB PO SCH (20:29)
[2023-04-08] MEDS: pyridOXINE 50 MG (B6) TAB PO SCH (20:29)
[2023-04-08] MEDS: Tamsulosin HCl 0.4 MG CAP PO SCH (20:29)
[2023-04-08] MEDS: Atorvastatin Calcium 40 MG TAB PER TUBE SCH (20:29)
[2023-04-09 03:49] LABS: #Eosinphils 0.2 thou/uL (0.0-0.7); #Monocytes 0.5 thou/uL (0.11-0.59); #Neutrophils 4.3 thou/uL (1.40-6.50); %Basophils 0.4 % (0.0-1.0); %Eosinophils 2.2 % (0.0-10.0); %Lymphocytes 25.2 % (21.0-51.0); %Monocytes 7.4 % (0.0-10.0); %Neutrophils 64.2 % (42.0-75.0); Hematocrit 32.3 % (42.0-52.0); Hemoglobin 10.7 g/dL (14.0-18.0); Mean Corpuscular HGB CONC 33.1 g/dL (32.0-36.0); Mean Corpuscular Hemoglobin 33.4 pg (27.0-31.0); Mean Corpuscular Volume 100.9 fl (78.0-98.0); Platelet Count 320 10x3/uL (130-400); RBC Distribution Width 13.9 % (11.5-14.5); White Blood Cell (WBC) Count 6.7 10x3/uL (4.8-10.8)
[2023-04-09 04:12] LABS: Anion Gap 11 mmol/L (10-20); BUN (Urea Nitrogen) 11 mg/dL (8.4-25.7); Calc. Creatinine Clearance 67 mL/min (70-130); Calcium 8.5 mg/dL (7.8-10.44); Carbon Dioxide 26 mmol/L (23-31); Chloride 107 mmol/L (98-107); Estimated GFR 86; Glucose 81 mg/dL (80-115); Sodium 140 mmol/L (136-145)
[2023-04-09] MEDS: Nicotine 14 MG PATCH TD SCH ×2 (05:37→09:05)
[2023-04-09] MEDS: levETIRAcetam 500 MG/5 ML VIAL SLOW IVP SCH ×2 (09:05→20:30)
[2023-04-09] MEDS: Lansoprazole 15 MG/5 ML (BATCHED)UDCUP PER TUBE SCH (09:05)
[2023-04-09] MEDS: Aspirin 325 MG TAB PER TUBE SCH (09:06)
[2023-04-09] MEDS: Ascorbic Acid 500 mg Chewable Tablet PO SCH (09:06)
[2023-04-09] MEDS: Furosemide 40 MG TAB PO SCH (09:06)
[2023-04-09] MEDS: Thiamine 100 MG TAB PO SCH (09:06)
[2023-04-09] MEDS: Senokot S 8.6-50 MG TAB PO SCH ×2 (09:07→20:32)
[2023-04-09] MEDS: Polyethylene Glycol 3350 17 GM Packet PO SCH (09:07)
[2023-04-09] MEDS: QUEtiapine 25 MG TAB PO SCH (20:30)
[2023-04-09] MEDS: pyridOXINE 50 MG (B6) TAB PO SCH (20:30)
[2023-04-09] MEDS: Tamsulosin HCl 0.4 MG CAP PO SCH (20:30)
[2023-04-09] MEDS: Cholecalciferol 1,000 UNITS (25 MCG) TAB PO SCH (20:31)
[2023-04-09] MEDS: Atorvastatin Calcium 40 MG TAB PER TUBE SCH (20:31)
[2023-04-10] MEDS: Ascorbic Acid 500 mg Chewable Tablet PO SCH (08:51)
[2023-04-10] MEDS: Thiamine 100 MG TAB PO SCH (08:52)
[2023-04-10] MEDS: Aspirin 325 MG TAB PER TUBE SCH (08:52)
[2023-04-10] MEDS: Lansoprazole 15 MG/5 ML (BATCHED)UDCUP PER TUBE SCH (08:52)
[2023-04-10] MEDS: Senokot S 8.6-50 MG TAB PO SCH ×2 (08:52→20:29)
[2023-04-10] MEDS: Polyethylene Glycol 3350 17 GM Packet PO SCH (08:52)
[2023-04-10] MEDS: Furosemide 40 MG TAB PO SCH (08:52)
[2023-04-10] MEDS: Nicotine 14 MG PATCH TD SCH (08:53)
[2023-04-10] MEDS: levETIRAcetam 500 MG/5 ML VIAL SLOW IVP SCH ×2 (08:53→20:18)
[2023-04-10] MEDS ORDERED: hydrALAZINE 20 MG/ML VIAL SLOW IVP PRN (16:09)
[2023-04-10] MEDS: Tamsulosin HCl 0.4 MG CAP PO SCH (20:18)
[2023-04-10] MEDS: Cholecalciferol 1,000 UNITS (25 MCG) TAB PO SCH (20:18)
[2023-04-10] MEDS: QUEtiapine 25 MG TAB PO SCH (20:19)
[2023-04-10] MEDS: Atorvastatin Calcium 40 MG TAB PER TUBE SCH (20:19)
[2023-04-10] MEDS: pyridOXINE 50 MG (B6) TAB PO SCH (20:19)
[2023-04-11 05:47] LABS: Anion Gap 11 mmol/L (10-20); BUN (Urea Nitrogen) 13 mg/dL (8.4-25.7); Calc. Creatinine Clearance 71 mL/min (70-130); Calcium 8.3 mg/dL (7.8-10.44); Carbon Dioxide 25 mmol/L (23-31); Chloride 107 mmol/L (98-107); Estimated GFR 93; Glucose 74 mg/dL (80-115); Magnesium 1.9 mg/dL (1.6-2.6); Potassium 3.9 mmol/L (3.5-5.1); Sodium 139 mmol/L (136-145)
[2023-04-11] MEDS ORDERED: Magnesium 2 GM/50 ML(in water) 2 GM in Premix 1 BAG IVPB SCH ×2 (08:00→16:30)
[2023-04-11] MEDS: levETIRAcetam 500 MG/5 ML VIAL SLOW IVP SCH ×2 (08:26→20:32)
[2023-04-11] MEDS: Lansoprazole 15 MG/5 ML (BATCHED)UDCUP PER TUBE SCH (08:26)
[2023-04-11] MEDS: Thiamine 100 MG TAB PO SCH (08:27)
[2023-04-11] MEDS: Furosemide 40 MG TAB PO SCH (08:27)
[2023-04-11] MEDS: Ascorbic Acid 500 mg Chewable Tablet PO SCH (08:27)
[2023-04-11] MEDS: Aspirin 325 MG TAB PER TUBE SCH (08:27)
[2023-04-11] MEDS: Senokot S 8.6-50 MG TAB PO SCH ×2 (08:28→20:30)
[2023-04-11] MEDS: Nicotine 14 MG PATCH TD SCH (08:28)
[2023-04-11] MEDS: Polyethylene Glycol 3350 17 GM Packet PO SCH (08:28)
[2023-04-11] MEDS ORDERED: dilTIAZem 25 MG/5 ML VIAL SLOW IVP SCH ×2 (15:15→17:30)
[2023-04-11 17:29] LABS: INR-International Normal Ratio 0.9; Prothrombin Time 12.7 sec (12.0-14.7)
[2023-04-11] MEDS ORDERED: Warfarin Sodium 7.5 MG TAB PO SCH (18:15)
[2023-04-11] MEDS ORDERED: Metoprolol Tartrate 25 MG TAB PO SCH (18:45)
[2023-04-11] MEDS: pyridOXINE 50 MG (B6) TAB PO SCH (20:29)
[2023-04-11] MEDS: Metoprolol Tartrate 25 MG TAB PO SCH (20:29)
[2023-04-11] MEDS: Atorvastatin Calcium 40 MG TAB PER TUBE SCH (20:29)
[2023-04-11] MEDS: Tamsulosin HCl 0.4 MG CAP PO SCH (20:29)
[2023-04-11] MEDS: QUEtiapine 25 MG TAB PO SCH (20:29)
[2023-04-11] MEDS: Cholecalciferol 1,000 UNITS (25 MCG) TAB PO SCH (20:30)
[2023-04-12 05:43] LABS: Prothrombin Time 13.8 sec (12.0-14.7)
[2023-04-12] MEDS: levETIRAcetam 500 MG/5 ML VIAL SLOW IVP SCH ×2 (07:41→20:35)
[2023-04-12] MEDS: Aspirin 325 MG TAB PER TUBE SCH (07:42)
[2023-04-12] MEDS: Ascorbic Acid 500 mg Chewable Tablet PO SCH (07:42)
[2023-04-12] MEDS: Senokot S 8.6-50 MG TAB PO SCH ×2 (07:42→20:27)
[2023-04-12] MEDS: Nicotine 14 MG PATCH TD SCH (07:42)
[2023-04-12] MEDS: Thiamine 100 MG TAB PO SCH (07:42)
[2023-04-12] MEDS: Furosemide 40 MG TAB PO SCH (07:42)
[2023-04-12] MEDS: Lansoprazole 15 MG/5 ML (BATCHED)UDCUP PER TUBE SCH (07:42)
[2023-04-12] MEDS: Polyethylene Glycol 3350 17 GM Packet PO SCH (07:43)
[2023-04-12 08:36] LABS: Anion Gap 10 mmol/L (10-20); BUN (Urea Nitrogen) 14 mg/dL (8.4-25.7); Calc. Creatinine Clearance 67 mL/min (70-130); Calcium 8.2 mg/dL (7.8-10.44); Carbon Dioxide 25 mmol/L (23-31); Chloride 106 mmol/L (98-107); Estimated GFR 93; Glucose 78 mg/dL (80-115); Magnesium 2.5 mg/dL (1.6-2.6); Sodium 137 mmol/L (136-145)
[2023-04-12] MEDS: Metoprolol Tartrate 25 MG TAB PO SCH ×2 (10:04→20:35)
[2023-04-12] MEDS ORDERED: Lorazepam 2 MG/ML VIAL SLOW IVP PRN (14:00)
[2023-04-12] MEDS ORDERED: Warfarin Sodium 5 MG TAB PO SCH (17:00)
[2023-04-12] MEDS: Atorvastatin Calcium 40 MG TAB PER TUBE SCH (20:34)
[2023-04-12] MEDS: QUEtiapine 25 MG TAB PO SCH (20:34)
[2023-04-12] MEDS: Cholecalciferol 1,000 UNITS (25 MCG) TAB PO SCH (20:34)
[2023-04-12] MEDS: pyridOXINE 50 MG (B6) TAB PO SCH (20:34)
[2023-04-12] MEDS: Tamsulosin HCl 0.4 MG CAP PO SCH (20:35)
[2023-04-13 04:38] LABS: #Eosinphils 0.1 thou/uL (0.0-0.7); #Monocytes 0.4 thou/uL (0.11-0.59); #Neutrophils 1.8 thou/uL (1.40-6.50); %Basophils 0.7 % (0.0-1.0); %Eosinophils 2.6 % (0.0-10.0); %Lymphocytes 45.7 % (21.0-51.0); %Monocytes 9.1 % (0.0-10.0); Hematocrit 34.7 % (42.0-52.0); Hemoglobin 11.8 g/dL (14.0-18.0); Mean Corpuscular Hemoglobin 33.7 pg (27.0-31.0); Mean Corpuscular Volume 99.1 fl (78.0-98.0); Mean Platelet Volume 11.2 fL (7.4-10.4); Platelet Count 347 10x3/uL (130-400); RBC Distribution Width 14.1 % (11.5-14.5); White Blood Cell (WBC) Count 4.3 10x3/uL (4.8-10.8)
[2023-04-13 04:49] LABS: INR-International Normal Ratio 1.2; Prothrombin Time 15.3 sec (12.0-14.7)
[2023-04-13 05:04] LABS: Anion Gap 10 mmol/L (10-20); BUN (Urea Nitrogen) 17 mg/dL (8.4-25.7); Calc. Creatinine Clearance 70 mL/min (70-130); Calcium 8.3 mg/dL (7.8-10.44); Carbon Dioxide 24 mmol/L (23-31); Chloride 105 mmol/L (98-107); Estimated GFR 94; Glucose 88 mg/dL (80-115); Sodium 135 mmol/L (136-145)
[2023-04-13] MEDS ORDERED: Magnesium 2 GM/50 ML(in water) 2 GM in Premix 1 BAG IVPB SCH (08:00)
[2023-04-13] MEDS: Aspirin 325 MG TAB PER TUBE SCH (09:11)
[2023-04-13] MEDS: Polyethylene Glycol 3350 17 GM Packet PO SCH (09:11)
[2023-04-13] MEDS: Ascorbic Acid 500 mg Chewable Tablet PO SCH (09:11)
[2023-04-13] MEDS: Senokot S 8.6-50 MG TAB PO SCH ×2 (09:11→20:29)
[2023-04-13] MEDS: Furosemide 40 MG TAB PO SCH (09:12)
[2023-04-13] MEDS: Metoprolol Tartrate 25 MG TAB PO SCH ×2 (09:12→20:17)
[2023-04-13] MEDS: Thiamine 100 MG TAB PO SCH (09:12)
[2023-04-13] MEDS: levETIRAcetam 500 MG/5 ML VIAL SLOW IVP SCH ×2 (09:13→20:17)
[2023-04-13] MEDS: Nicotine 14 MG PATCH TD SCH (09:13)
[2023-04-13] MEDS: Lansoprazole 15 MG/5 ML (BATCHED)UDCUP PER TUBE SCH (09:19)
[2023-04-13] MEDS ORDERED: Warfarin Sodium 3 MG TAB PO SCH (17:00)
[2023-04-13] MEDS: Tamsulosin HCl 0.4 MG CAP PO SCH (20:17)
[2023-04-13] MEDS: Cholecalciferol 1,000 UNITS (25 MCG) TAB PO SCH (20:17)
[2023-04-13] MEDS: QUEtiapine 25 MG TAB PO SCH (20:17)
[2023-04-13] MEDS: Atorvastatin Calcium 40 MG TAB PER TUBE SCH (20:17)
[2023-04-13] MEDS: pyridOXINE 50 MG (B6) TAB PO SCH (20:17)
[2023-04-14 04:58] LABS: INR-International Normal Ratio 1.3; Prothrombin Time 16.9 sec (12.0-14.7)
[2023-04-14] MEDS: Polyethylene Glycol 3350 17 GM Packet PO SCH (10:04)
[2023-04-14] MEDS: Aspirin Chewable 81 MG TAB PER TUBE SCH (10:05)
[2023-04-14] MEDS: Senokot S 8.6-50 MG TAB PO SCH ×2 (10:05→21:48)
[2023-04-14] MEDS: Ascorbic Acid 500 mg Chewable Tablet PO SCH (10:05)
[2023-04-14] MEDS: Nicotine 14 MG PATCH TD SCH (10:05)
[2023-04-14] MEDS: Furosemide 40 MG TAB PO SCH (10:06)
[2023-04-14] MEDS: levETIRAcetam 500 MG/5 ML VIAL SLOW IVP SCH ×2 (10:06→21:47)
[2023-04-14] MEDS: Metoprolol Tartrate 25 MG TAB PO SCH ×2 (10:06→21:49)
[2023-04-14] MEDS: Thiamine 100 MG TAB PO SCH (10:10)
[2023-04-14 14:53] VITALS: BMI 16.6
[2023-04-14] MEDS: Warfarin Sodium 7.5 MG TAB PO SCH (16:08)
[2023-04-14] MEDS: QUEtiapine 25 MG TAB PO SCH (21:48)
[2023-04-14] MEDS: Tamsulosin HCl 0.4 MG CAP PO SCH (21:49)
[2023-04-14] MEDS: pyridOXINE 50 MG (B6) TAB PO SCH (21:49)
[2023-04-14] MEDS: Cholecalciferol 1,000 UNITS (25 MCG) TAB PO SCH (21:49)
[2023-04-14] MEDS: Atorvastatin Calcium 40 MG TAB PER TUBE SCH (21:49)
[2023-04-15 05:19] LABS: #Basophils 0.1 thou/uL (0.0-0.2); #Eosinphils 0.2 thou/uL (0.0-0.7); #Monocytes 0.4 thou/uL (0.11-0.59); #Neutrophils 1.6 thou/uL (1.40-6.50); %Basophils 1.2 % (0.0-1.0); %Eosinophils 3.6 % (0.0-10.0); %Monocytes 9.5 % (0.0-10.0); Hematocrit 34.9 % (42.0-52.0); Hemoglobin 11.8 g/dL (14.0-18.0); Mean Corpuscular HGB CONC 33.8 g/dL (32.0-36.0); Mean Corpuscular Hemoglobin 34.2 pg (27.0-31.0); Mean Corpuscular Volume 101.2 fl (78.0-98.0); Mean Platelet Volume 11.2 fL (7.4-10.4); Platelet Count 323 10x3/uL (130-400); RBC Distribution Width 14.3 % (11.5-14.5); Red Blood Cell (RBC) Count 3.45 mill/uL (4.70-6.10); White Blood Cell (WBC) Count 4.2 10x3/uL (4.8-10.8)
[2023-04-15 05:31] LABS: INR-International Normal Ratio 1.6; Prothrombin Time 19.7 sec (12.0-14.7)
[2023-04-15 05:43] LABS: Anion Gap 12 mmol/L (10-20); BUN (Urea Nitrogen) 20 mg/dL (8.4-25.7); Calc. Creatinine Clearance 63 mL/min (70-130); Calcium 8.4 mg/dL (7.8-10.44); Carbon Dioxide 25 mmol/L (23-31); Chloride 105 mmol/L (98-107); Estimated GFR 90; Glucose 79 mg/dL (80-115); Potassium 4.2 mmol/L (3.5-5.1); Sodium 138 mmol/L (136-145)
[2023-04-15] MEDS: Metoprolol Tartrate 25 MG TAB PO SCH ×2 (09:25→20:31)
[2023-04-15] MEDS: Ascorbic Acid 500 mg Chewable Tablet PO SCH (09:25)
[2023-04-15] MEDS: Nicotine 14 MG PATCH TD SCH (09:25)
[2023-04-15] MEDS: Thiamine 100 MG TAB PO SCH (09:26)
[2023-04-15] MEDS: Aspirin Chewable 81 MG TAB PER TUBE SCH (09:26)
[2023-04-15] MEDS: levETIRAcetam 500 MG/5 ML VIAL SLOW IVP SCH ×2 (09:26→20:32)
[2023-04-15] MEDS: Polyethylene Glycol 3350 17 GM Packet PO SCH (09:26)
[2023-04-15] MEDS: Furosemide 40 MG TAB PO SCH (09:26)
[2023-04-15] MEDS: Senokot S 8.6-50 MG TAB PO SCH ×2 (09:26→20:32)
[2023-04-15] MEDS: Warfarin Sodium 7.5 MG TAB PO SCH (18:06)
[2023-04-15] MEDS: QUEtiapine 25 MG TAB PO SCH (20:30)
[2023-04-15] MEDS: Tamsulosin HCl 0.4 MG CAP PO SCH (20:31)
[2023-04-15] MEDS: Cholecalciferol 1,000 UNITS (25 MCG) TAB PO SCH (20:31)
[2023-04-15] MEDS: Atorvastatin Calcium 40 MG TAB PER TUBE SCH (20:31)
[2023-04-15] MEDS: pyridOXINE 50 MG (B6) TAB PO SCH (20:32)
[2023-04-16 05:41] LABS: INR-International Normal Ratio 1.8; Prothrombin Time 21.8 sec (12.0-14.7)
[2023-04-16] MEDS: Aspirin Chewable 81 MG TAB PER TUBE SCH (08:56)
[2023-04-16] MEDS: Metoprolol Tartrate 25 MG TAB PO SCH ×2 (08:56→21:03)
[2023-04-16] MEDS: Furosemide 40 MG TAB PO SCH (08:56)
[2023-04-16] MEDS: Ascorbic Acid 500 mg Chewable Tablet PO SCH (08:57)
[2023-04-16] MEDS: Thiamine 100 MG TAB PO SCH (08:57)
[2023-04-16] MEDS: levETIRAcetam 500 MG TAB PO SCH ×2 (08:57→21:02)
[2023-04-16] MEDS: Nicotine 14 MG PATCH TD SCH (08:58)
[2023-04-16] MEDS: Warfarin Sodium 7.5 MG TAB PO SCH (16:36)
[2023-04-16] MEDS: Senokot S 8.6-50 MG TAB PO SCH ×2 (16:37→21:03)
[2023-04-16] MEDS: Polyethylene Glycol 3350 17 GM Packet PO SCH (16:37)
[2023-04-16] MEDS: pyridOXINE 50 MG (B6) TAB PO SCH (21:02)
[2023-04-16] MEDS: Atorvastatin Calcium 40 MG TAB PER TUBE SCH (21:02)
[2023-04-16] MEDS: Tamsulosin HCl 0.4 MG CAP PO SCH (21:02)
[2023-04-16] MEDS: QUEtiapine 25 MG TAB PO SCH (21:02)
[2023-04-16] MEDS: Cholecalciferol 1,000 UNITS (25 MCG) TAB PO SCH (21:02)
[2023-04-17 06:02] LABS: Hematocrit 37.2 % (42.0-52.0); Hemoglobin 12.5 g/dL (14.0-18.0); Platelet Count 305 10x3/uL (130-400)
[2023-04-17 06:15] LABS: INR-International Normal Ratio 2.5; Prothrombin Time 27.7 sec (12.0-14.7)
[2023-04-17] MEDS: Thiamine 100 MG TAB PO SCH (10:20)
[2023-04-17] MEDS: Furosemide 40 MG TAB PO SCH (10:20)
[2023-04-17] MEDS: Ascorbic Acid 500 mg Chewable Tablet PO SCH (10:20)
[2023-04-17] MEDS: Metoprolol Tartrate 25 MG TAB PO SCH ×2 (10:21→20:03)
[2023-04-17] MEDS: levETIRAcetam 500 MG TAB PO SCH ×2 (10:21→20:03)
[2023-04-17] MEDS: Nicotine 14 MG PATCH TD SCH (10:21)
[2023-04-17] MEDS: Aspirin Chewable 81 MG TAB PER TUBE SCH (10:21)
[2023-04-17] MEDS: Senokot S 8.6-50 MG TAB PO SCH ×2 (10:21→19:58)
[2023-04-17] MEDS: Polyethylene Glycol 3350 17 GM Packet PO SCH (10:21)
[2023-04-17] MEDS: Warfarin Sodium 7.5 MG TAB PO SCH (17:31)
[2023-04-17] MEDS: Atorvastatin Calcium 40 MG TAB PER TUBE SCH (20:03)
[2023-04-17] MEDS: Cholecalciferol 1,000 UNITS (25 MCG) TAB PO SCH (20:03)
[2023-04-17] MEDS: Tamsulosin HCl 0.4 MG CAP PO SCH (20:03)
[2023-04-17] MEDS: QUEtiapine 25 MG TAB PO SCH (20:03)
[2023-04-17] MEDS: pyridOXINE 50 MG (B6) TAB PO SCH (20:03)
[2023-04-18 06:59] LABS: Hematocrit 35.2 % (42.0-52.0); Platelet Count 272 10x3/uL (130-400)
[2023-04-18 07:14] LABS: INR-International Normal Ratio 3.1; Prothrombin Time 33.1 sec (12.0-14.7)
[2023-04-18] MEDS: Polyethylene Glycol 3350 17 GM Packet PO SCH (08:37)
[2023-04-18] MEDS: Nicotine 14 MG PATCH TD SCH (08:37)
[2023-04-18] MEDS: Thiamine 100 MG TAB PO SCH ×2 (08:38→08:42)
[2023-04-18] MEDS: levETIRAcetam 500 MG TAB PO SCH (08:39)
[2023-04-18] MEDS: Furosemide 40 MG TAB PO SCH (08:41)
[2023-04-18] MEDS: Aspirin Chewable 81 MG TAB PER TUBE SCH (08:42)
[2023-04-18] MEDS: Ascorbic Acid 500 mg Chewable Tablet PO SCH (08:42)
[2023-04-18] MEDS: Metoprolol Tartrate 25 MG TAB PO SCH (10:29)
[2023-04-18] MEDS: Senokot S 8.6-50 MG TAB PO SCH (10:30)
[2023-04-18 12:34] VITALS: BP 127/90; TEMP 98.6
== END 2023-04-18 15:10 | disposition home or self-care (01) | DRG 207 ==
LOC: ERS 12:05 → EDBD 15:40 → CCU 15:40 → MERGE 15:40 → IMCU/EMU 04-03 19:25 → 2NO 04-12 19:38
PROVIDERS: ADMIT Internal Medicine Critical Care Medicine; ATTEND Internal Medicine
PROC: 5A1955Z Respiratory Ventilation, Greater than 96 Consecutive Hours (ICD-10-PCS; principal; 2023-03-27)
PROC: 0BH17EZ Insertion of Endotracheal Airway into Trachea, Via Natural or Artificial Opening (ICD-10-PCS; 2023-03-27)
PROC: 4A133R1 Monitoring of Arterial Saturation, Peripheral, Percutaneous Approach (ICD-10-PCS; 2023-03-27)
PROC: 3E03329 Introduction of Other Anti-infective into Peripheral Vein, Percutaneous Approach (ICD-10-PCS; 2023-03-27)
PROC: 4A00X4Z Measurement of Central Nervous Electrical Activity, External Approach (ICD-10-PCS; 2023-03-28)
PROC: 0BC38ZZ Extirpation of Matter from Right Main Bronchus, Via Natural or Artificial Opening Endoscopic (ICD-10-PCS; 2023-04-01)
PROC: 5A0945A Assistance with Respiratory Ventilation, 24-96 Consecutive Hours, High Flow/Velocity Cannula (ICD-10-PCS; 2023-04-01)
PROC: 0BC68ZZ Extirpation of Matter from Right Lower Lobe Bronchus, Via Natural or Artificial Opening Endoscopic (ICD-10-PCS; 2023-04-01)
DX: J96.01 Acute respiratory failure with hypoxia (principal); A41.9 Sepsis, unspecified organism; G93.41 Metabolic encephalopathy; J15.211 Pneumonia due to Methicillin susceptible Staphylococcus aureus; J69.0 Pneumonitis due to inhalation of food and vomit; I48.92 Unspecified atrial flutter; I50.42 Chronic combined systolic (congestive) and diastolic (congestive) heart failure; R64 Cachexia; Z68.1 Body mass index [BMI] 19.9 or less, adult; R56.9 Unspecified convulsions; Z51.5 Encounter for palliative care; I11.0 Hypertensive heart disease with heart failure; G93.89 Other specified disorders of brain; F14.10 Cocaine abuse, uncomplicated; I48.0 Paroxysmal atrial fibrillation; Z95.2 Presence of prosthetic heart valve; Z79.01 Long term (current) use of anticoagulants; E78.5 Hyperlipidemia, unspecified; R33.9 Retention of urine, unspecified; Z91.199 Patient's noncompliance with other medical treatment and regimen due to unspecified reason; Z86.73 Personal history of transient ischemic attack (TIA), and cerebral infarction without residual deficits; Z71.51 Drug abuse counseling and surveillance of drug abuser; Z78.1 Physical restraint status
CPT/HCPCS: 31500; 36415; 36416; 36600; 70450; 70496; 70498; 70551; 71045; 74018; 80048; 80053; 80061; 80202; 80306; 80307; 81001; 82805; 83605; 83735; 84145; 84443; 84484; 85014; 85018; 85025; 85049; 85610; 85730; 86780; 87040; 87070; 87077; 87081; 87086; 87186; 87205; 87389; 87529; 89220; 93005; 93010; 93306; 94002; 94003; 94640; 94760; 95711; 95819; 96365; 96374; 96375; 96376; 99292; C9113; J0282; J0360; J0692; J1630; J1650; J1940; J1953; J2060; J2543; J2704; J3010; J3370; J3370-JW; J3411; J3473; J3475; J3480; J3490; J7050; J7070; J7620; S0028

== ENCOUNTER 2025-03-12 13:14 | Emergency (ER) | payer OTHER ==
[2025-03-12 13:50] LABS: #Basophils Less than 0.03 10x3/uL (0.0-0.2); #Eosinophils 0.11 10x3/uL (0.0-0.7); #Monocytes 0.28 10x3/uL (0.11-0.59); #Neutrophils 1.62 10x3/uL (1.40-6.50); %Basophils 0.5 % (0.0-1.0); %Eosinophils 2.9 % (0.0-10.0); %Lymphocytes 46.3 % (21.0-51.0); %Monocytes 7.4 % (0.0-10.0); %Neutrophils 42.9 % (42.0-75.0); Hematocrit 40.6 % (42.0-52.0); Hemoglobin 13.4 g/dL (14.0-18.0); Mean Corpuscular Hemoglobin 32.5 pg (27.0-31.0); Mean Corpuscular Volume 98.5 fL (78.0-98.0); Platelet Count 141 10x3/uL (130-400); Red Blood Cell (RBC) Count 4.12 mill/uL (4.70-6.10); White Blood Cell (WBC) Count 3.78 10x3/uL (4.8-10.8)
[2025-03-12 14:12] LABS: ALT (SGPT) 51 U/L (Less than 45); AST (SGOT) 51 U/L (11-34); Albumin 3.7 g/dL (3.1-4.5); Alkaline Phosphatase 100 U/L (40-110); Anion Gap 8 mmol/L (10-20); BUN (Urea Nitrogen) 15 mg/dL (8.4-25.7); Bilirubin, Total 0.5 mg/dL (0.3-1.2); Calc. Creatinine Clearance 0 mL/min (70-130); Calcium 8.6 mg/dL (7.8-10.44); Carbon Dioxide 27 mmol/L (23-31); Chloride 109 mmol/L (98-107); Globulin 2.7 g/dL (2.4-3.5); Glucose 91 mg/dL (83-110); Potassium 4.1 mmol/L (3.5-5.1); Sodium 140 mmol/L (136-145)
[2025-03-12 14:16] LABS: Prothrombin Time 78.4 sec (12.0-14.7)
[2025-03-12 14:22] LABS: INR-International Normal Ratio 9.7
== END 2025-03-12 14:30 | disposition home or self-care (01) ==
LOC: ERS 13:14
DX: R79.89 Other specified abnormal findings of blood chemistry (principal); I11.0 Hypertensive heart disease with heart failure; I50.9 Heart failure, unspecified; Z86.73 Personal history of transient ischemic attack (TIA), and cerebral infarction without residual deficits; E78.5 Hyperlipidemia, unspecified; Z79.02 Long term (current) use of antithrombotics/antiplatelets; Z79.899 Other long term (current) drug therapy
CPT/HCPCS: 80053; 85025; 85610; 99283